=== PATIENT | male | born 1955 | race Caucasian/White ===

== ENCOUNTER 2022-04-04 04:36 | Inpatient (IN) | payer MEDICARE, OTHER, MEDICAID, SELFPAY ==
--- NOTE | 2022-04-04 04:38 | ECG_ITS ---
APPROVED REPORT Exam: Resting ECG HR:70 bpm ECG Measurements Heart Rate 70 AXES IL 199 P 62 QRSd 109 QRS 47 QT 400 T -42 QTc 421 Conclusion SINUS RHYTHM POSSIBLE INFERIOR MYOCARDIAL INFARCTION , OF INDETERMINATE AGE [30 ms Q WAVE IN II/aVF] ABNORMAL ECG UNCONFIRMED REPORT Electronically signed by : Octavio Arguello MD 04/05/2022 22:38:25
[2022-04-04 04:48] VITALS: BMI 29.0
[2022-04-04 04:55] VITALS: BMI 29.0
[2022-04-04 05:03] LABS: Basophils # 0.1 K/mm3 (0-0.2); Basophils % 0.4 % (0.1-2.0); Eosinophils # 0.1 K/mm3 (0.0-0.4); Eosinophils % 0.8 % (0.1-12.0); Hematocrit 51.4 % (42.0-52.0); Lymphocytes # 1.1 K/mm3 (0.7-4.5); Lymphocytes % 8.2 % (10-50); Mean Corpuscular HGB Conc 33.1 g/dL (31.8-35.4); Mean Corpuscular Hemoglobin 32.3 pg (27.0-31.2); Mean Corpuscular Volume 97.6 fl (80-94); Mean Platelet Volume 8.5 fl (7.4-10.4); Monocytes # 0.3 K/mm3 (0.1-1.0); Monocytes % 2.3 % (1.7-9.3); Neutrophils # 11.6 K/mm3 (1.8-7.8); Neutrophils % 88.3 % (37.0-80.0); Platelet Count 212 K/mm3 (142-424); Red Blood Count 5.26 M/mm3 (4.60-6.20); Red Cell Distribution Width 14.1 % (11.5-17.5); White Blood Count 13.1 K/mm3 (4.8-10.8)
[2022-04-04 05:04] LABS: Coronavirus 19, PCR Not Detected (NotDetected); Influenza A, PCR Not Detected (NotDetected); Influenza B, PCR Not Detected (NotDetected); MANUAL DIFFERENTIAL MANUAL DIFFERENTIAL (MANUAL DIFF)
[2022-04-04 05:12] LABS: Chloride 105 mmol/L (98-107); Sodium 140 mmol/L (136-145)
[2022-04-04 05:13] LABS: Potassium 3.9 mmoL/L (3.5-5.1)
[2022-04-04 05:14] LABS: Lymphocytes % 9 % (10-50); Monocytes % 1 % (2-9); Neutrophils % 87 % (42-76); Platelet Estimate Normal; RBC Morphology Normal; Total Cells Counted 100
[2022-04-04 05:16] LABS: Anion Gap 11.9 mEq/L (5-15); Blood Urea Nitrogen 9 mg/dl (9-20); Calcium 8.7 mg/dl (8.4-10.2); Carbon Dioxide 27 mmol/L (22.0-30.0); Creatinine Clearance Estimated 97 mL/min (50-200); Estimated Glomerular Filt Rate 96 ml/min (>60); GFR (African American) 116 ML/MIN (>60); Glucose 174 mg/dl (74-100)
--- NOTE | 2022-04-04 05:19 | PC.NURSE ---
Pt given small amount of water to drink per request. No other needs at this time. Call light within reach.
--- NOTE | 2022-04-04 05:21 | PC.NURSE ---
Dr. Starkey at assessing pt at this time.
[2022-04-04 05:24] VITALS: O2SAT 94
[2022-04-04 05:25] LABS: NT Pro Brain Natriuretic Pep. 1160 pg/mL (0-125)
[2022-04-04 05:38] LABS: Troponin I 1.66 ng/ml (0.00-0.034)
--- NOTE | 2022-04-04 05:38 | PC.NURSE ---
Ford from lab called critical troponin of 1.66, notified. No new orders.
--- NOTE | 2022-04-04 07:05 | EXP.HP ---
History of Present Illness *Admission Date: 04/04/22 *Reason for visit:: chest pain *History of present illness: this patient with new onset ofpressure like chest pain which started a few days ago and has been progressive since with rad to bilat upper ext - pt presented to [facility] and was noted to have abn ekg and elevated cardiac enz and transferred to [facility] for eval and treatment and card eval - [facility] records reviewed - [facility] Medical History (Updated 04/04/22 @ 20:36 by Brian Starkey MD) Bony spur CHF (congestive heart failure) COPD (chronic obstructive pulmonary disease) GERD (gastroesophageal reflux disease) Gout Hyperlipidemia Hypertension Nicotine dependence Surgical History (Updated 04/04/22 @ 05:20 by Daria Suarez, LAURENT) History of cholecystectomy Family History (Updated 04/04/22 @ 05:22 by Daria Suarez, LAURENT) Shelly Gehrig disease Father Family history of acute heart failure Mother Diabetes type 2, uncontrolled Mother Brother History of nephrectomy Brother Kidney failure Mother Kidney tumor Brother Family history of myocardial infarction Mother Hx of CABG Mother Lung disease Mother Stroke Mother Social History (Updated 04/04/22 @ 05:29 by Daria Suarez, LAURENT) Smoking Status: Current every day smoker tobacco type: cigarettes packs per day: 1 (1.5 packs per day) years smoked: 47 quit status: considering quitting second hand exposure: Yes Tobacco counseling given: provider counseling alcohol intake: never current occupational status: retired Travel in the last 8 weeks: None education level: high school service: No intermediate: No current occupational exposures/hazards: No pets and animals: Yes pets and animals: dog(s) leisure activities: fishing caffeine: Yes high-fat food intake: 3 or more times/day nela/gnosticism: Restoration special nela needs: No agree to transfusion: Yes Review of Systems Review of Systems Review of systems:: pertinent systems reviewed and negative unless documented below Constitutional Constitutional: Denies fever(s) and Denies headache(s) Eyes Eyes: Denies eye discharge ENT Ears, Nose, Mouth, and Throat: Denies headache(s) *Cardiovascular Cardiovascular: Reports as per HPI, Reports chest pain at rest, Reports dyspnea and Reports radiating jaw, neck or arm pain *Respiratory Respiratory: Reports as per HPI, Reports dyspnea and Denies hemoptysis *Gastrointestinal Gastrointestinal: Denies change in stool character *Genitourinary Genitourinary: Denies hematuria *Musculoskeletal Musculoskeletal: Reports arthralgias and Denies back pain Integumentary/Breasts Skin/Breast: Denies rash *Neurologic Neurologic: Denies confusion, Denies localized weakness and Denies headache(s) Psychiatric Psychiatric: Denies confusion Meds Home Medications and Allergies Home Medications Medication Instructions Recorded Confirmed Type albuterol sulfate 90 mcg/actuation 2 puff inhalation QIDP PRN 04/04/22 04/04/22 History aerosol inhaler (Ventolin HFA) Shortness Of Breath allopurinol 300 mg tablet 300 mg PO DAILY gout 04/04/22 04/04/22 History amlodipine 10 mg-benazepril 40 mg 1 cap PO DAILY Hypertension 04/04/22 04/04/22 History capsule atenolol 100 mg tablet 100 mg PO DAILY Hypertension 04/04/22 04/04/22 History furosemide 40 mg tablet (Lasix) 40 mg PO DAILY Edema 04/04/22 04/04/22 History omeprazole 20 mg capsule,delayed 20 mg PO DAILY GERD 04/04/22 04/04/22 History release sildenafil 100 mg tablet 100 mg PO NEEDED PRN Erectile 04/04/22 04/04/22 History Dysfunction simvastatin 20 mg tablet 20 mg PO HS Cholesterol 04/04/22 04/04/22 History New Prescriptions to Start Prescriptions: Allergies Allergy/AdvReac Type Severity Reaction Status Date / Time Naproxen Allergy Intermediate I-RASH Uncoded 07/12/17 14:45 Acetaminophen Allergy Unknown Uncoded 07/12/17 14:45 Oxycodone Allergy Unknown NA-NAUS
--- NOTE | 2022-04-04 07:54 | PC.NURSE ---
called dietary for a meal tray
--- NOTE | 2022-04-04 08:10 | PC.NURSE ---
pt eating breakfast
--- NOTE | 2022-04-04 08:26 | PC.NURSE ---
talked to Talha in pharmacy who is going to dose the heparin drip and bolus
[2022-04-04 08:39] LABS: Activated Partial Thrombo Time 30.6 seconds (22.8-30.6); INR 0.94 (0.9-1.1); Prothrombin Time 10.2 seconds (10.1-12.5)
--- NOTE | 2022-04-04 08:45 | HMH.PHAINT1 ---
Pharmacy Intervention Comments: MEDICATION RECONCILIATION COMPLETED ON PATIENT USING EXTERNAL FILL HISTORY FROM PHARMACY. -NENITA GUNN, NADEEMD
--- NOTE | 2022-04-04 10:51 | P.CONPHA_ITS ---
[facility] Pharmacy Heparin Dosing Demographic Data Admission date:: 04/04/22 Date: 04/04/22 Time: 10:51 Allergies Allergy/AdvReac Type Severity Reaction Status Date / Time naproxen Allergy Mild Rash Verified 04/05/22 14:34 oxycodone AdvReac Mild Nausea Verified 04/05/22 14:34 Height: 1.83 m Weight: 97 kg Indication Medication therapy:: Heparin Current Indications:: NSTEMI Current Active Problems (Updated 04/05/22 @ 10:14 by Preeti Aldridge APRN) Hypertension (Acute) Unstable angina (Acute) Non-STEMI (non-ST elevated myocardial infarction) (Acute) Overweight (BMI 25.0-29.9) (Acute) Non-STEMI (non-ST elevated myocardial infarction) (Acute) COPD (chronic obstructive pulmonary disease) (Acute) GERD (gastroesophageal reflux disease) (Acute) Hyperlipidemia (Acute) Nicotine dependence (Acute) CVA?: No Bleeding problem?: No Kidney disease?: No WV?: No Desired PTT range:: Other (50-75) Comments:: 50-75 Labs Anticoagulation Lab Results:: 04/04/22 04:55 Hgb 17.0 Hct 51.4 Plt Count 212 Monitoring Dose Monitor 1: Date: 04/04/22 Time: 08:30 PTT Result:: 30.6 Infusion Rate:: 1000 UNITS/HR PER EDUARDO Comment:: 5000 UNIT HEPARIN BOLUS PER EDUARDO. Dose Monitor 2: Date: 04/04/22 Time: 14:30 PTT Result:: 47.1 Infusion Rate:: RATE INCREASED TO 1,200 UNITS/HR Dose Monitor 3: Date: 04/04/22 Time: 21:00 PTT Result:: 41.8 Infusion Rate:: RATE INCREASED TO 1,400 UNITS/HR Dose Monitor 4: Date: 04/05/22 Time: 04:00 PTT Result:: 55.1 Infusion Rate:: 1,400 UNITS/HR Dose Monitor 5: Date: 04/05/22 Time: 10:00 PTT Result:: 56.2 Infusion Rate:: 1,400 UNITS/HR Comment:: STOPPED AFTER LEAVING HOSPITAL MEDICINE DIRECTOR Core Measures Is INR > or = 2 at discharge?: No Most Recent Labs:: Laboratory Results - last 24 hr 04/04/22 04:55: WBC 13.1 H, RBC 5.26, Hgb 17.0, Hct 51.4, MCV 97.6 H, MCH 32.3 H , MCHC 33.1, RDW 14.1, Plt Count 212, MPV 8.5, Neut % (Auto) 88.3 H, Lymph % (Auto) 8.2 L, Garland % (Auto) 2.3, Eos % (Auto) 0.8, Baso % (Auto) 0.4, Neut # (Auto) 11.6 H, Lymph # (Auto) 1.1, [place] # (Auto) 0.3, Eos # (Auto) 0.1, Baso # (Auto) 0.1, Total Counted 100, Neutrophils % (Manual) 87 H, Band Neutrophils % 3.0, Lymphocytes % (Manual) 9 L, Monocytes % (Manual) 1 L, Platelet Estimate Normal, RBC Morphology Normal 04/04/22 04:55: Sodium 140, Potassium 3.9, Chloride 105, Carbon Dioxide 27, Anion Gap 11.9, BUN 9, Creatinine 0.80, Estimated Creat Clear 97, Estimated GFR 96, Est GFR ( Amer) 116, Glucose 174 H, Calcium 8.7, Troponin I 1.66 H, NT-Pro-B Natriuret Pep 1160 H 04/04/22 04:55: SARS-CoV-2 (PCR) Not detected, Influenza A Untype (PCR) Not detected, Influenza Type B (PCR) Not detected 04/04/22 04:55: PT 10.2, INR 0.94, APTT 30.6 Were Heparin and Warfarin started on the same day?: No
--- NOTE | 2022-04-04 11:20 | PC.NURSE ---
called report to Shira MANCILLA
--- NOTE | 2022-04-04 11:39 | PC.NURSE ---
pt arrived to the floor at this time
[2022-04-04 11:47] VITALS: BP 139/79; PULSE 81; RESP 16; TEMP 36.4; O2SAT 99; BMI 27.9
--- NOTE | 2022-04-04 11:49 | PC.NURSE ---
pt had 1 unmeasured void
[2022-04-04 12:00] VITALS: PULSE 80
--- NOTE | 2022-04-04 13:57 | PC.NURSE ---
pt had 1 unmeasured void
[2022-04-04 14:48] LABS: PTT Heparin (inpatient only) 47.1 Seconds (23.6-34.0)
--- NOTE | 2022-04-04 15:49 | PC.NURSE ---
heparin rate changed to 24 per pharmacy. next draw is @2100
[2022-04-04 16:00] VITALS: BP 149/82; PULSE 79; PULSE 90; RESP 18; TEMP 36.7; O2SAT 96
[2022-04-04 20:00] VITALS: BP 130/74; PULSE 70; PULSE 95; RESP 18; TEMP 36.5; O2SAT 97
[2022-04-04 22:10] LABS: PTT Heparin (inpatient only) 41.8 Seconds (23.6-34.0)
--- NOTE | 2022-04-04 22:22 | HMH.PHAINT ---
dennis with nightwatch called with ptt results 41.8, note new orders to increase rate to 1400units/hr; 28ml/hr ; repeat ptt at 0400, repeated and verified.
[2022-04-04 23:58] VITALS: BP 144/81; PULSE 82; RESP 17; TEMP 36.6; O2SAT 99
[2022-04-05] VITALS (22 sets, daily range): BP systolic 129–165; BP diastolic 72–99; PULSE 60–88; RESP 16–20; TEMP 36.4–36.7; O2SAT 93–98; BMI 27.9
--- NOTE | 2022-04-05 | IR_ITS ---
APPROVED REPORT Patient Location: Inpatient PROCEDURES Left heart catheterization Left ventriculogram Selective coronary angiogram Drug-eluting stent deployment to the proximal mid dominant right coronary FFR to the LAD INDICATION Acute non-ST elevation myocardial infarction, Coronary artery disease, Angiographic ambiguous mid LAD disease Informed consent was obtained prior to the procedure. COMPLICATIONS NONE Estimated Blood Loss: LESS THAN 10 ML TECHNIQUE One percent lidocaine used to anesthetize the right anterior aspect of the wrist. The right radial artery was accessed via the Seldinger technique. A 6 Latvian sheath was placed in the right radial artery. 2.5 mg of verapamil, 800 mcg of nitroglycerin, 1mg Lidocaine and 5000 U Heparin were given through the arterial sheath. The papa catheter was also used to perform left heart catheterization, left ventriculogram and selective coronary angiogram. At the end the diagnostic angiogram therapeutic heparin was administered giving a therapeutic ACT and the guide catheter was placed in the right coronary followed by a Choice PT extra-support wire. A 4 mm x 38 mm resolute Harper stent was deployed at 14 hemanth reducing the critical stenosis to 0%. RAFAEL-3 flow was present before and after the procedure. At the end of the procedure the guide catheter was placed back in the left main artery with a wire placed down to the LAD. A nevus FFR catheter was then equalized in the left main artery and then advanced into the distal LAD. Adenosine was infused and the FFR index dropped to 0.81. Given this did not meet hemodynamic significance the apparatus was removed the sheath was removed good hemostasis was achieved using TR banding patient was transferred to the postop putting in stable condition ANGIOGRAPHIC RESULTS The left main artery Normal The left anterior descending artery Is proximally normal and then has multiple 50 and 60% mid vessel stenoses. The LAD is large in the mid segment approximately 3.5 mm in diameter. A large first diagonal artery has mild 10% luminal regularities The circumflex artery Is nondominant and has mild 10 to 20% mid vessel stenosis The right coronary artery There is a large dominant vessel and has proximal 30% and then 40% with mid vessel critical greater than 90% stenosis. Distally the vessel has a long 30% mostly eccentric stenosis The LEWIS ventriculogram reveals Preserved at 55% with mild inferior wall hypokinesis The left ventricular end-diastolic pressure 15 mmHg IMPRESSION Critical mid dominant right coronary disease as described above with successful stenting reducing the lesion to 0% with 1 drug-eluting stent Moderate to severe mid LAD disease as described above producing an FFR index of 0.81 which still warrants medical management Preserved ejection fraction with mild regional wall motion abnormality Borderline elevated LVEDP PLAN 1. Dual antiplatelet therapy 2. Risk factor modification 3. LDL less than 55 to be achieved with high intensity statin 4. Continue medical management for the mid LAD disease 5. Avoidance of tobacco products 6. Risk factor modification Electronically signed by : James Vyas MD 04/05/2022 15:27:26
[2022-04-05 04:06] LABS: Eosinophils # 0.2 K/mm3 (0.0-0.4); Hemoglobin 16.2 g/dL (14.1-18.0); Lymphocytes # 1.5 K/mm3 (0.7-4.5); Mean Corpuscular Hemoglobin 32.1 pg (27.0-31.2); Monocytes # 0.9 K/mm3 (0.1-1.0); Red Cell Distribution Width 14.2 % (11.5-17.5)
[2022-04-05 04:12] LABS: Basophils # 0.1 K/mm3 (0-0.2); Basophils % 0.4 % (0.1-2.0); Chloride 103 mmol/L (98-107); Eosinophils % 0.8 % (0.1-12.0); Hematocrit 49.2 % (42.0-52.0); Lymphocytes % 5.9 % (10-50); Mean Corpuscular HGB Conc 32.9 g/dL (31.8-35.4); Mean Corpuscular Volume 97.5 fl (80-94); Mean Platelet Volume 8.5 fl (7.4-10.4); Monocytes % 3.7 % (1.7-9.3); Neutrophils # 22.4 K/mm3 (1.8-7.8); Neutrophils % 89.2 % (37.0-80.0); Platelet Count 243 K/mm3 (142-424); Potassium 4.7 mmoL/L (3.5-5.1); Red Blood Count 5.05 M/mm3 (4.60-6.20); Sodium 137 mmol/L (136-145)
[2022-04-05 04:14] LABS: White Blood Count 25.2 K/mm3 (4.8-10.8)
[2022-04-05 04:15] LABS: Anion Gap 11.7 mEq/L (5-15); Blood Urea Nitrogen 15 mg/dl (9-20); Calcium 8.7 mg/dl (8.4-10.2); Carbon Dioxide 27 mmol/L (22.0-30.0); Creatinine Clearance Estimated 94 mL/min (50-200); Estimated Glomerular Filt Rate 96 ml/min (>60); GFR (African American) 116 ML/MIN (>60); Glucose 154 mg/dl (74-100); MANUAL DIFFERENTIAL MANUAL DIFFERENTIAL (MANUAL DIFF)
[2022-04-05 04:20] LABS: PTT Heparin (inpatient only) 55.1 Seconds (23.6-34.0)
[2022-04-05 04:25] LABS: Lymphocytes % 4 % (10-50); Monocytes % 3 % (2-9); Neutrophils % 84 % (42-76); Platelet Estimate Normal; RBC Morphology Normal; Total Cells Counted 100
--- NOTE | 2022-04-05 04:25 | HMH.PHAINT ---
PTT 55.1 called to kp with nightwatch, no rate change at this time and next PTT in 6 hours repeated and verified.
--- NOTE | 2022-04-05 05:43 | CA_ITS ---
APPROVED REPORT EXAM: Comprehensive 2D, Doppler, and color-flow Echocardiogram Energy Director: Socorro Soto CRT Ht: 6 ft 0 in Wt: 206lbs BSA: 2.16 BP: 104/78 mmHg Indications: post-covid 03/15 Abnormal ECG, Chest Pain, COPD, Non STEMI, Hypertension/HDD 2D Dimensions LVOT 2.14 cm (M/F) 1.5-2.5 LA Volume 40.80 mL LA Volume Index 18.90 mL/m2 (M/F) 16-34 M-Mode Dimensions RVDd 3.22 cm (0.9-2.6) LA Diam 3.94 cm (1.9-4.0) LVDd 6.03 cm (3.5-5.7) Ao Diam 4.08 cm (2.0-3.7) LVDs 3.94 cm (3.5-5.7) IVSd 1.09 cm (0.6-1.1) PWd 1.05 cm (0.6-1.1) EF (Teich) 62.90% FS 34.70% EDV (Teich) 182.10 mL TAPSE 2.18 (<1.7) ESV (Teich) 67.50 mL LV Diastology E Decel Time 237.00 (160-240 msec) E/A Ratio 0.76 MED E' 6.20 (< 7 cm/sec) MED A' 11.00 cm/s E'/MED E' Ratio 11.13 (>14) LAT E' 8.60 (<10 cm/sec) LAT A' 15.00 cm/s E/LAT E' Ratio 8.02 (>14) Aortic Valve AO Peak GR. 6.20 mmHg Mitral Valve MV A Velocity 91.00 (40-130 cm/s) E/A Ratio 0.76 MV Decel. Time 237.00 (160-240 ms) Pulmonary Valve PV Peak Velocity 110.00 (50-150 cm/s) Tricuspid Valve TR P. Velocity 164.00 cm/s RAP Estimate 10.00 mmHg RVSP 20.70 mmHg Left Ventricle Left atrium is mildly enlarged, left ventricle is normal size, mild concentric left ventricular hypertrophy, estimated ejection fraction 55% with no regional wall motion abnormality, endocardial surfaces are poorly visualized. Grade 1 diastolic dysfunction seen without tissue Doppler evidence of raise left atrial pressure. Right Ventricle Right atrium and right ventricle are mildly enlarged with normal contractility. Aortic Valve Valve is minimally thickened and calcified without aortic stenosis or aortic insufficiency. Mitral Valve Mitral valve grossly normal, there is trace mitral regurgitation. Tricuspid Valve Tricuspid valve grossly normal, there is trace tricuspid regurgitation, tricuspid regurgitation jet velocity is inadequate for calculation of the right ventricular systolic pressure. Pulmonic Valve Pulmonic valve is poorly visualized. Great Vessels Aortic root is normal size. Vena cava is poorly visualized. Pericardium No significant pericardial effusion noted. Conclusion 1. Biatrial enlargement, normal left ventricular size, mild concentric left ventricular hypertrophy, estimated ejection fraction 55% with no regional wall motion abnormality, grade 1 diastolic dysfunction seen without tissue Doppler evidence of raise left atrial pressure. 2. The right atrium and right ventricle are mildly enlarged with normal contractility. 3. The aortic valve is minimally thickened and fibrosed there is no aortic stenosis or aortic insufficiency. 4. Trace mitral and tricuspid regurgitation. 5. No significant pericardial effusion. 6. Inferior vena cava is poorly visualized. Electronically signed by : Haider See MD 04/05/2022 15:30:31
--- NOTE | 2022-04-05 05:46 | PC.NURSE ---
Addendum entered by Yenny Norwood RN 04/05/22 07:03: telemetry reveals NSR Original Note: pt rested well through the night, heparin gtt at 28mls/1400units/hr, last ptt 55.7, next ptt due at 10am, no complaints of chest pain through the night, VSS, WBC elevated with 4am lab draw 25.2, no acute distress noted this shift, no other issues noted at this time.
--- NOTE | 2022-04-05 10:02 | EXP.CARD.CON ---
History of Present Illness History of Present Illness Consult date: 04/05/22 Requesting physician: Brian Starkey Consult reason: chest pain Chief complaint: chest pain History of present illness: This is a 66-year-old white gentleman who presented to the emergency department at [facility] with complaints of chest pain. The patient states that his chest pain started on Tuesday evening after being started on dexamethasone and albuterol inhalers. The patient states that when he went to bed that night he had sudden onset of pain in the central aspect of his chest that he describes as a pressure sensation that radiated to bilateral arms and caused heaviness. The patient states that he attributed it to the new medications. He stopped taking the medications and he continued to have the chest pain until he presented to the emergency department over the weekend. The patient states that Tuesday night and Tuesday night the chest pain was the worst. He states that this was severe. It is associated with shortness of breath and diaphoresis. He states that it radiates to his bilateral arms and causes heaviness. The patient states that the pain is always the worst at night and does wake him up from his sleep. Nothing really helps to improve the pain but time. He states that this can last for several hours at a time. He reported not having any symptoms like this at all. The patient did report to [facility] emergency department over the weekend and was found to have an elevated troponin consistent with a non-STEMI. He also had an abnormal EKG. The patient was then transferred here to [facility] for further evaluation and treatment. He denies any fever, chills, nausea, vomiting, diarrhea, PND or orthopnea. [facility] Medical History (Updated 04/05/22 @ 10:14 by Preeti Aldridge APRN) Bony spur CHF (congestive heart failure) COPD (chronic obstructive pulmonary disease) GERD (gastroesophageal reflux disease) Gout Hyperlipidemia Hypertension Nicotine dependence Non-STEMI (non-ST elevated myocardial infarction) Unstable angina Surgical History (Updated 04/04/22 @ 05:20 by Daria Suarez RN) History of cholecystectomy Family History (Updated 04/04/22 @ 05:22 by Daria Suarez RN) Mother Family history of acute heart failure Diabetes type 2, uncontrolled Kidney failure Family history of myocardial infarction Hx of CABG Lung disease Stroke Brother Diabetes type 2, uncontrolled Kidney tumor History of nephrectomy Father Shelly Gehrig disease Social History (Updated 04/04/22 @ 05:29 by Daria Saurez RN) Smoking Status: Current every day smoker tobacco type: cigarettes packs per day: 1 (1.5 packs per day) years smoked: 47 quit status: considering quitting second hand exposure: Yes Tobacco counseling given: provider counseling alcohol intake: never current occupational status: retired Travel in the last 8 weeks: None education level: high school service: No shelter: No current occupational exposures/hazards: No pets and animals: Yes pets and animals: dog(s) leisure activities: fishing caffeine: Yes high-fat food intake: 3 or more times/day nela/latter day: Anabaptism special nela needs: No agree to transfusion: Yes Review of Systems Review of Systems Review of systems:: pertinent systems reviewed and negative unless documented below Constitutional Constitutional: Denies headache(s) Eyes Eyes: Reports system reviewed and no additional complaints, except as documented ENT Ears, Nose, Mouth, and Throat: Denies headache(s) *Cardiovascular Cardiovascular: Reports system reviewed and no additional complaints, except as documented, Reports chest pain, Reports chest pain at rest, Reports chest pain with activity, Reports diaphoresis, Reports dyspnea and Reports dyspnea on exertion *Respiratory Respiratory: Reports system reviewed and no additional compla
--- NOTE | 2022-04-05 10:25 | P.CONPHA_ITS ---
[facility] Pharmacy VTE Monitoring Patient Demographics Admission date: 04/04/22 Report Date: 04/05/22 Time: 10:25 Patient Allergies Naproxen Allergy (Intermediate, Uncoded 07/12/17 14:45) I-RASH Acetaminophen Allergy (Unknown, Uncoded 07/12/17 14:45) Oxycodone Allergy (Unknown, Uncoded 07/12/17 14:45) NA-NAUSEA/VOMITING Height: 1.83 m Weight: 93.5 kg Current Active Problems (Updated 04/05/22 @ 10:14 by Preeti Aldridge APRN) Hypertension (Acute) Unstable angina (Acute) Non-STEMI (non-ST elevated myocardial infarction) (Acute) Overweight (BMI 25.0-29.9) (Acute) Non-STEMI (non-ST elevated myocardial infarction) (Acute) COPD (chronic obstructive pulmonary disease) (Acute) GERD (gastroesophageal reflux disease) (Acute) Hyperlipidemia (Acute) Nicotine dependence (Acute) VTE Risk Labs: VTE Related Lab Results Hgb 16.2 g/dL (14.1-18.0) 04/05/22 04:00 Hct 49.2 % (42.0-52.0) 04/05/22 04:00 Plt Count 243 K/mm3 (142-424) 04/05/22 04:00 PT 10.2 seconds (10.1-12.5) 04/04/22 04:55 INR 0.94 (0.9-1.1) 04/04/22 04:55 APTT 55.1 Seconds (23.6-34.0) H* 04/05/22 04:00 BUN 15 mg/dl (9-20) D 04/05/22 04:00 Creatinine 0.80 mg/dl (0.66-1.25) 04/05/22 04:00 Estimated Creat Clear 94 mL/min (50-200) 04/05/22 04:00 Prophylaxis VTE Prophylaxis Ordered?: Yes Types of VTE Prophylaxis: Pharmacological Location of Applied Device: Not Applicable Pharmacologic Type: Heparin
[2022-04-05 10:26] LABS: PTT Heparin (inpatient only) 56.2 Seconds (23.6-34.0)
[2022-04-05 14:14] LABS: CATHL Activated Clotting Time 371 SEC (74-125)
--- NOTE | 2022-04-05 16:16 | P.PN_ITS ---
Subjective *Date: 05/06/22 *Time: 00:04 Interval history: doing ok awaiting card eval Medical Exam Vital signs and Labs for Last 24 Hours: Temp Pulse Resp BP Pulse Ox 97.6 F 76 18 151/74 H 96 04/05/22 08:00 04/05/22 15:55 04/05/22 15:55 04/05/22 15:55 04/05/22 15:55 Laboratory Results - last 24 hr 04/04/22 21:00: APTT 41.8 H 04/05/22 04:00: WBC 25.2 H* D, RBC 5.05, Hgb 16.2, Hct 49.2, MCV 97.5 H, MCH 32.1 H, MCHC 32.9, RDW 14.2, Plt Count 243, MPV 8.5, Neut % (Auto) 89.2 H, Lymph % (Auto) 5.9 L, [place] % (Auto) 3.7, Eos % (Auto) 0.8, Baso % (Auto) 0.4, Neut # (Auto) 22.4 H, Lymph # (Auto) 1.5, [place] # (Auto) 0.9, Eos # (Auto) 0.2, Baso # (Auto) 0.1, Total Counted 100, Neutrophils % (Manual) 84 H, Band Neutrophils % 9.0 H, Lymphocytes % (Manual) 4 L, Monocytes % (Manual) 3, Platelet Estimate Normal, RBC Morphology Normal 04/05/22 04:00: Sodium 137, Potassium 4.7 D, Chloride 103, Carbon Dioxide 27, Anion Gap 11.7, BUN 15 D, Creatinine 0.80, Estimated Creat Clear 94, Estimated GFR 96, Est GFR ( Amer) 116, Glucose 154 H, Calcium 8.7 04/05/22 04:00: APTT 55.1 H* 04/05/22 10:09: APTT 56.2 H* 04/05/22 13:22: Activated Clotting Time 371 H* I & O for Labs for Last 24 Hours: Intake & Output 04/03/22 04/04/22 04/05/22 04/06/22 11:59 11:59 11:59 11:59 Intake Total 2049 Output Total 0 / 0 0 / 0 200 / 200 Balance 0 / 0 2049 -200 / -200 Weight 206 lb 5 oz 206 lb 2.115 oz Head: Present atraumatic ENT: Present mucous membranes moist Neck: Present trachea midline Respiratory: Present CTA bilaterally Cardiac: Present Reg Rate and Rhythm and Systolic Murmur GI: Present soft Extremities: Absent calf tenderness Skin: Absent erythema Neuro: Present Cranial Nerve 2-12 Intact
--- NOTE | 2022-04-05 17:44 | PC.NURSE ---
PT IS SITTING UP ON THE SOB EATING DINNER AT THIS TIME. FAMILY AT BEDSIDE. ALERT AND ORIENTED X4. NO COMPLAINTS OF CP OR SOA. EATING AND DRINKING WELL. LUNG SOUNDS DIMINISHED. ABDOMEN SOFT/NON TENDER WITH ACTIVE BOWEL SOUNDS. NO SWELLING NOTED BLE. AMBULATES TO THE BATHROOM. WILL CONTINUE TO MONITOR.
--- NOTE | 2022-04-05 21:23 | PC.NURSE ---
pt requested breathing treatment. states he uses them at home and would like one now. paged and spoke with dr. ryder. new orders received. paged respiratory for yanni finney @[phone]
[2022-04-06] VITALS: PULSE 70
[2022-04-06 04:00] VITALS: BP 131/82; PULSE 69; PULSE 70; RESP 16; TEMP 36.6; O2SAT 97
--- NOTE | 2022-04-06 04:12 | PC.NURSE ---
pt has had no c/o CP or SOA this shift. right radial cath site dressing c/d/i. he has been NSR on tele with HR 70-88. he remains on RA and has tolerated well. lung sounds diminished. non-productive cough present. tolerates cardiac diet. a&oX4. ambulated independently to bathroom. 1/2 NS infusing at 50 ml/hr. call light within reach, no needs at this time.
[2022-04-06 05:00] VITALS: BMI 28.0
[2022-04-06 06:44] LABS: Basophils # 0.1 K/mm3 (0-0.2); Basophils % 0.8 % (0.1-2.0); Eosinophils # 0.1 K/mm3 (0.0-0.4); Eosinophils % 0.7 % (0.1-12.0); Hematocrit 49.9 % (42.0-52.0); Lymphocytes # 3.6 K/mm3 (0.7-4.5); Lymphocytes % 21.5 % (10-50); Mean Corpuscular HGB Conc 32.1 g/dL (31.8-35.4); Mean Corpuscular Hemoglobin 31.9 pg (27.0-31.2); Mean Corpuscular Volume 99.4 fl (80-94); Mean Platelet Volume 8.9 fl (7.4-10.4); Neutrophils # 11.8 K/mm3 (1.8-7.8); Platelet Count 236 K/mm3 (142-424); Red Blood Count 5.02 M/mm3 (4.60-6.20); Red Cell Distribution Width 14.3 % (11.5-17.5); White Blood Count 16.7 K/mm3 (4.8-10.8)
[2022-04-06 06:51] LABS: Alanine Aminotransferase 30 U/L (12-78); Albumin Level 3.9 g/dl (3.5-5.0); Alkaline Phosphatase 89 U/L (38-126); Anion Gap 13.1 mEq/L (5-15); Aspartate Amino Transferase 40 U/L (17-59); Bilirubin,Direct 0.2 mg/dl (0.0-0.4); Bilirubin,Total 0.2 mg/dl (0.2-1.3); Bilirubin,Unconjugated 0.1 mg/dL (0.0-1.1); Blood Urea Nitrogen 18 mg/dl (9-20); Calcium 8.7 mg/dl (8.4-10.2); Carbon Dioxide 27 mmol/L (22.0-30.0); Chloride 101 mmol/L (98-107); Chol/HDL Ratio 4.1 (1-3.5); Cholesterol 153 mg/dl (140-200); Creatinine Clearance Estimated 94 mL/min (50-200); Estimated Glomerular Filt Rate 84 ml/min (>60); GFR (African American) 102 ML/MIN (>60); Glucose 103 mg/dl (74-100); HDL Cholesterol 37 mg/dl (40-60); Potassium 4.1 mmoL/L (3.5-5.1); Sodium 137 mmol/L (136-145); Total Protein,Serum 6.5 g/dl (6.3-8.2); Triglycerides 200 mg/dl (30-150); VLDL Cholesterol 40 mg/dL (0-40)
[2022-04-06 07:01] LABS: Direct LDL Cholesterol 81.37 mg/dL (100-129)
[2022-04-06 07:03] LABS: MANUAL DIFFERENTIAL MANUAL DIFFERENTIAL (MANUAL DIFF)
[2022-04-06 07:42] LABS: Lymphocytes % 21 % (10-50); Monocytes % 3 % (2-9); Neutrophils % 76 % (42-76); Platelet Estimate Normal; RBC Morphology Normal; Total Cells Counted 100
[2022-04-06 07:58] VITALS: BP 134/82; PULSE 77; RESP 16; TEMP 36.6; O2SAT 97
[2022-04-06 08:00] VITALS: PULSE 70
--- NOTE | 2022-04-06 09:20 | EXP.CARD.PN ---
Subjective Subjective Date: 04/06/22 Time: 08:30 Principal diagnosis: Non-stemi, CAD, coronary stenting Interval history: This is a 66-year-old white gentleman who presented to the emergency department initially at [facility] with chest pain. He was found to have a non-STEMI and an abnormal EKG. The patient was transferred here to [facility]. The patient underwent left cardiac catheterization and had stenting to the right coronary artery yesterday. The patient will remain on Plavix and aspirin for dual antiplatelet therapy. This morning he denies any chest pain or pressure. He denies any shortness of breath or edema. He denies any fever, chills, nausea, vomiting, diarrhea, PND or orthopnea. He denies any right radial pain. The patient does report that through the night he had a little bit of coughing and wheezing, he was given a DuoNeb treatment and his symptoms resolved. He has had no issues since that time. He reports that he is feeling much better and is ready to be discharged home. [facility] shows: The left main artery Normal The left anterior descending artery Is proximally normal and then has multiple 50 and 60% mid vessel stenoses.? The LAD is large in the mid segment approximately 3.5 mm in diameter.? A large first diagonal artery has mild 10% luminal regularities The circumflex artery Is nondominant and has mild 10 to 20% mid vessel stenosis The right coronary artery There is a large dominant vessel and has proximal 30% and then 40% with mid vessel critical greater than 90% stenosis.? Distally the vessel has a long 30% mostly eccentric stenosis The LEWIS ventriculogram reveals Preserved at 55% with mild inferior wall hypokinesis The left ventricular end-diastolic pressure 15 mmHg IMPRESSION Critical mid dominant right coronary disease as described above with successful stenting reducing the lesion to 0% with 1 drug-eluting stent Moderate to severe mid LAD disease as described above producing an FFR index of 0.81 which still warrants medical management Preserved ejection fraction with mild regional wall motion abnormality Borderline elevated LVEDP PLAN 1. Dual antiplatelet therapy 2. Risk factor modification 3. LDL less than 55 to be achieved with high intensity statin 4. Continue medical management for the mid LAD disease 5. Avoidance of tobacco products 6. Risk factor modification Exam Data for Last 24 hours Vital signs and Labs for Last 24 Hours: Temp Pulse Resp BP Pulse Ox 97.8 F 77 16 134/82 97 04/06/22 07:58 04/06/22 07:58 04/06/22 07:58 04/06/22 07:58 04/06/22 07:58 Laboratory Results - last 24 hr 04/05/22 10:09: APTT 56.2 H* 04/05/22 13:22: Activated Clotting Time 371 H* 04/06/22 06:33: WBC 16.7 H D, RBC 5.02, Hgb 16.0, Hct 49.9, MCV 99.4 H, MCH 31.9 H, MCHC 32.1, RDW 14.3, Plt Count 236, MPV 8.9, Neut % (Auto) 71.0, Lymph % (Auto) 21.5, Bent % (Auto) 6.0, Eos % (Auto) 0.7, Baso % (Auto) 0.8, Neut # (Auto) 11.8 H, Lymph # (Auto) 3.6, Bent # (Auto) 1.0, Eos # (Auto) 0.1, Baso # (Auto) 0.1, Total Counted 100, Neutrophils % (Manual) 76, Lymphocytes % (Manual) 21, Monocytes % (Manual) 3, Platelet Estimate Normal, RBC Morphology Normal 04/06/22 06:33: Sodium 137, Potassium 4.1, Chloride 101, Carbon Dioxide 27, Anion Gap 13.1, BUN 18, Creatinine 0.90, Estimated Creat Clear 94, Estimated GFR 84, Est GFR ( Amer) 102, Glucose 103 H, Calcium 8.7, Total Bilirubin 0.2, Direct Bilirubin 0.2, Conjugated Bilirubin 0.0, Indirect Bilirubin 0.0, Unconjugated Bilirubin 0.1, AST 40, ALT 30, Alkaline Phosphatase 89, Total Protein 6.5, Albumin 3.9, Triglycerides 200 H, Cholesterol 153, LDL Cholesterol Direct 81.37 L, VLDL Cholesterol 40, HDL Cholesterol 37 L, Cholesterol/HDL Ratio 4.1 H I & O for Last 24 hours: Intake & Output 04/03/22 04/04/22 04/05/22 04/06/22 23:59 23:59 23:59 23:59 Intake Total 1560 / 1560 1090 / 1090 287 / 287 Output Total 0 / 0 200 / 200 0 / 0 Balance 1560 / 1560 89
--- NOTE | 2022-04-06 10:22 | EXP.DC.SUM ---
General Admission date:: 04/04/22 Discharge date: 04/06/22 HPI HPI HPI: this patient with new onset ofpressure like chest pain which started a few days ago and has been progressive since with rad to bilat upper ext - pt presented to [facility] and was noted to have abn ekg and elevated cardiac enz and transferred to [facility] for eval and treatment and card eval - [facility] records reviewed - Hospital Course Hospital Course Hospital Course: 66 YOM presented to the [facility] emergency department with reports of chest pain.? He was found to have a non-STEMI and an abnormal EKG.? He was then transferred to [facility] and underwent a left cardiac catheterization and had stenting to the right coronary artery.? [facility] shows: The left main artery Normal The left anterior descending artery Is proximally normal and then has multiple 50 and 60% mid vessel stenoses.? The LAD is large in the mid segment approximately 3.5 mm in diameter.? A large first diagonal artery has mild 10% luminal regularities The circumflex artery Is nondominant and has mild 10 to 20% mid vessel stenosis The right coronary artery There is a large dominant vessel and has proximal 30% and then 40% with mid vessel critical greater than 90% stenosis.? Distally the vessel has a long 30% mostly eccentric stenosis The LEWIS ventriculogram reveals Preserved at 55% with mild inferior wall hypokinesis The left ventricular end-diastolic pressure 15 mmHg IMPRESSION Critical mid dominant right coronary disease as described above with successful stenting reducing the lesion to 0% with 1 drug-eluting stent Moderate to severe mid LAD disease as described above producing an FFR index of 0.81 which still warrants medical management Preserved ejection fraction with mild regional wall motion abnormality Borderline elevated LVEDP PLAN 1. Dual antiplatelet therapy 2. Risk factor modification 3. LDL less than 55 to be achieved with high intensity statin 4. Continue medical management for the mid LAD disease 5. Avoidance of tobacco products 6. Risk factor modification Assessment and Plan Assessment and Plan for All Diagnoses:: Plan: 1.? This is a 66-year-old gentleman who presented to the emergency department at [facility] initially was found to have a non-ST elevation myocardial infarction with an abnormal EKG.? The patient was transferred here to [place] and underwent left cardiac catheterization secondary to the non-STEMI yesterday.? He had stenting to his right coronary artery for critical disease.? He also has persistent disease to his LAD which had an FFR of 0.81 so no percutaneous intervention was indicated.? The patient will remain on Plavix and aspirin for dual antiplatelet therapy secondary to recent coronary stenting. 2.? This morning the patient denies any chest pain or pressure.? Coronary artery disease is likely stable. 3.? His blood pressure is well controlled. 4.? His LDL goal is less than 55.? His LDL is currently 81.? We will stop simvastatin and put him on Lipitor 40 mg p.o. nightly. 5.? His echocardiogram shows a normal ejection fraction. 6.? Tobacco cessation is highly advised and counseled. 7.? No further recommendations at this time from a cardiac standpoint.? The patient is stable for discharge home today from a cardiac standpoint.? The patient will need to follow-up in cardiology clinic in 1 week on an outpatient basis.? The patient will need to be discharged on the following cardiac medications: Aspirin 81 mg daily, Plavix 75 mg daily, Lipitor 40 mg p.o. nightly, atenolol 100 mg daily, amlodipine/benazepril 10/40 mg 1 capsule daily. He will be discharged home today with follow-up appointments scheduled with PCP Pamela Jean and [facility] cardiology Exam Data for Last 24 hours Vital signs and Labs for Last 24 Hours: Temp Pulse Resp BP Pulse Ox 97.8 F 70 16 134/82 97 04/06/22 07:58 04/06/22 08:00
--- NOTE | 2022-04-06 11:36 | P.CONPHA_ITS ---
PHA Household Appliances Salesperson Discharge Med Books Salesperson: Shayan Darden Jimmie has received discharge medication counseling on the following medications: ASPIRIN, PLAVIX, ATORVASTATIN, BENZAPRIL+AMLODIPINE, ATENOLOL were discussed with and patient
--- NOTE | 2022-04-07 13:37 | CARE MANAGER ---
Left message for post-discharge phone interview.
== END 2022-04-06 11:25 | disposition home or self-care (01) | DRG 247 ==
PROVIDERS: Internal Medicine; Nurse Practitioner Family; Admitting Provider Emergency Medicine; PCP Nurse Practitioner Family; Visit Provider Emergency Medicine
PROC: 027034Z Dilation of Coronary Artery, One Artery with Drug-eluting Intraluminal Device, Percutaneous Approach (ICD-10-PCS; principal; 2022-04-05 12:30)
DX: I21.4 Non-ST elevation (NSTEMI) myocardial infarction (principal); F17.210 Nicotine dependence, cigarettes, uncomplicated; I25.110 Atherosclerotic heart disease of native coronary artery with unstable angina pectoris; J44.9 Chronic obstructive pulmonary disease, unspecified; I25.10 Atherosclerotic heart disease of native coronary artery without angina pectoris; Z71.6 Tobacco abuse counseling; M10.9 Gout, unspecified; I11.0 Hypertensive heart disease with heart failure; I50.9 Heart failure, unspecified; E78.5 Hyperlipidemia, unspecified
CPT/HCPCS: 36415; 80048; 80061; 80076; 83880; 84484; 85007; 85025; 85347; 85610; 85730; 92928; 93005; 93306; 93458; 93571; 94640; 99152; 99153; C1725; C1769; C1876; C9600; C9803; J0153; J1644; Q9967; U0003; U0005

== ENCOUNTER → 2022-04-14 10:38 | Outpatient (CLI) | payer MEDICARE, MEDICAID, OTHER, SELFPAY ==
[2022-04-14 12:49] LABS: Hematocrit 48.9 % (42.0-52.0); Hemoglobin 15.9 g/dL (14.1-18.0)
[2022-04-14 14:06] LABS: Blood Urea Nitrogen 10 mg/dl (9-20); Estimated Glomerular Filt Rate 74 ml/min (>60); GFR (African American) 90 ML/MIN (>60)
== END ==
PROVIDERS: PCP Nurse Practitioner Family; Visit Provider Emergency Medicine
DX: I20.0 Unstable angina (principal)
CPT/HCPCS: 36415; 82565; 84520; 85014; 85018

== ENCOUNTER 2022-04-20 09:37 | Outpatient (RCR) | payer MEDICARE, OTHER, MEDICAID, SELFPAY | END 2022-07-01 10:30 | disposition home or self-care (01) | LOC: PT 09:37 | PROVIDERS: Visit Provider Internal Medicine | DX: I25.10 Atherosclerotic heart disease of native coronary artery without angina pectoris (principal); Z95.5 Presence of coronary angioplasty implant and graft | CPT/HCPCS: 93798 ==

== ENCOUNTER → 2023-03-23 06:44 | Outpatient (CLI) | payer MEDICARE, OTHER, MEDICAID, SELFPAY ==
--- NOTE | 2023-03-23 06:51 | NM_ITS ---
APPROVED REPORT Exam: Nuclear Stress Test Indication: soa..fatigue Patient Location: Outpatient Stress Tech: Lazara Garcia [place] Tech:NACHO Murguia RT(R)(N) Ht: 6 ft 0 in Wt: 241 lbs HR: 61 bpm BP: 142/80 mmHg BSA: 2.31 m2 Rhythm: NSR TID: 1.07 History: soa..fatigue Procedure: Patient received 0.4 mg of intravenous Lexiscan, resting heart rate 61 bpm, resting blood pressure 142/80 mmHg, with Lexiscan maximum heart rate achieved was 72 bpm which is 85 % of the maximum predicted heart rate and blood pressure was 151/83 mmHg. With Lexiscan, patient denied any complaint of chest pain. Cardiac Stress and Resting SPECT Images: Cardiac Stress and Resting SPECT images were obtained using technetium 99m Myoview 32.9 mCi stress and 10.98 mCi at rest. Raw images demonstrate significant radiotracer GI uptake in close proximity to the inferior LV wall. This may affect the diagnostic interpretation of the study findings. Resting and stress imaging in supine position demonstrate a small-sized, moderate, fixed perfusion defect in the basal inferior LV wall. This is no longer visualize with prone stress imaging. Findings are suggestive of artifact. Gated imaging demonstrates normal global and regional LV systolic function. LVEF is calculated at 57%. Conclusion: Raw images demonstrate significant radiotracer GI uptake in close proximity to the inferior LV wall. This may affect the diagnostic interpretation of the study findings. Resting and stress imaging in supine position demonstrate a small-sized, moderate, fixed perfusion defect in the basal inferior LV wall. This is no longer visualize with prone stress imaging. Findings are suggestive of artifact. Gated imaging demonstrates normal global and regional LV systolic function. LVEF is calculated at 57%. Electronically signed by : Dhara Vidales, 03/28/2023 16:46:16
--- NOTE | 2023-03-23 08:45 | CA_ITS ---
APPROVED REPORT Exam: Pharmacologic Technologist: Lazara Dominique, Ht: 6 ft 0 in Wt: 241 lbs BSA: 2.31 m2 HR: 61 bpm BP: 142/80 mmHg Rhythm: NSR Medical History Medications: Aspirin,,,,, Atenolol,,,,, Allopurinol,,,,, Pantoprazole,,,,, Atorvastatin,,,,, Lasix,,,,, Albuterol,,,,, CloPIdogrel,,,,, Amlodipine-Benazepril,,,,, SyMBICcort,,,,, Seldenafil,,,,, Stress Test Details Test: LEXISCAN Reason for pharmacologic stress test: physical limitation. HR Resting HR: 61 bpm Max Heart Rate (APMHR): 151 bpm Max HR Achieved: 72 bpm Target HR (85% APMHR): 128 bpm % of APMHR: 48 Recovery HR: 67 bpm BP Resting BP: 142.0/80.0 mmHg Max BP: 151.0/83.0 mmHg Recovery BP: 147.0/82.0 mmHg ECG Resting ECG: NSR, 1st degree AVB, cannot R/O old inferior IA Stress ECG: No significant ST change Arrhythmia: Occasional PVCs Clinical Exercise duration: 04:01 min Highest Stage Achieved: Exercise capacity: 1.0 METs Stress ECG Conclusion Symptoms: mild SOA, head discomfort. No CP. Arrhythmias/Ectopy: Occasional PVCs ST-T Changes: No significant ST changes Conclusion: Unremarkable Lexiscan stress test. Myoview images reported separately. Test Summary REST . . . . . . . Resting REST 04:45 . . 61 . 142/ 80 . . Stage 1 01:00 . . 67 . . . . Stage 2 01:00 . . 67 . 143/ 76 . . Stage 3 01:00 . . 67 . 139/ 74 . . Stage 4 01:00 . . 68 . 142/ 78 . . Stage 4 01:01 . . 68 . 142/ 78 . Stop exercise at 04:01 RECOVERY 01:00 . . 70 . . . . RECOVERY 02:00 . . 66 . 151/ 83 . . RECOVERY 03:00 . . 67 . 147/ 82 . . RECOVERY 03:33 . . 69 . 147/ 82 . . Electronically signed by : Dhara Vidales, 03/28/2023 16:41:58
== END ==
PROVIDERS: PCP Nurse Practitioner Family; Visit Provider Nurse Practitioner Family
DX: E78.5 Hyperlipidemia, unspecified (principal); I10 Essential (primary) hypertension; I21.4 Non-ST elevation (NSTEMI) myocardial infarction; I25.10 Atherosclerotic heart disease of native coronary artery without angina pectoris; J44.9 Chronic obstructive pulmonary disease, unspecified; K21.9 Gastro-esophageal reflux disease without esophagitis; R06.00 Dyspnea, unspecified; Z95.5 Presence of coronary angioplasty implant and graft
CPT/HCPCS: 78452; 93017; A9502; J2785

== ENCOUNTER → 2023-04-07 09:43 | Outpatient (CLI) | payer MEDICARE, OTHER, MEDICAID, SELFPAY ==
--- NOTE | 2023-04-07 09:46 | CA_ITS ---
APPROVED REPORT EXAM: Comprehensive 2D, Doppler, and color-flow Echocardiogram Crime Data Specialist: Kenya Waller RVT Ht: 6 ft 0 in Wt: 241lbs BSA: 2.31 BP: 134/62 mmHg Indications: DYSPENA,CAD,CHF,COPD,HTN,HLD 2D Dimensions LVOT 2.23 cm (M/F) 1.5-2.5 LA Volume 55.70 mL LA Volume Index 24.11 mL/m2 (M/F) 16-34 M-Mode Dimensions RVDd 3.27 cm (0.9-2.6) LA Diam 4.75 cm (1.9-4.0) LVDd 5.46 cm (3.5-5.7) Ao Diam 3.59 cm (2.0-3.7) LVDs 3.93 cm (3.5-5.7) IVSd 1.00 cm (0.6-1.1) PWd 0.65 cm (0.6-1.1) EF (Teich) 53.70% FS 28.00% EDV (Teich) 145.00 mL TAPSE 2.73 (<1.7) ESV (Teich) 67.10 mL LV Diastology E Decel Time 200.00 (160-240 msec) E/A Ratio 0.6 MED E' 5.20 (< 7 cm/sec) E'/MED E' Ratio 10.96 (>14) LAT E' 5.30 (<10 cm/sec) E/LAT E' Ratio 10.75 (>14) Aortic Valve AO Peak GR. 5.90 mmHg Mitral Valve MV E Max Tor. 57.00 (40-130 cm/s) MV A Velocity 95.00 (40-130 cm/s) E/A Ratio 0.60 MV Decel. Time 200.00 (160-240 ms) MV PHT 59.00 ms Pulmonary Valve PV Peak Velocity 96.00 (50-150 cm/s) Left Ventricle The left ventricle is normal size. The left ventricular systolic function is normal. The left ventricular ejection fraction is within the normal range. There is increased LV wall thickness. There is normal LV segmental wall motion. The left ventricular diastolic function is normal. LVEF is 55%. Right Ventricle The right ventricle is mildly dilated. The right ventricular systolic function is normal. Atria The left atrium size is normal. The right atrium size is normal. There is no Doppler evidence of interatrial shunt. Aortic Valve The aortic valve is mildly thickened. There is no aortic valvular stenosis. No aortic regurgitation is present. Mitral Valve The mitral valve is normal in structure. No evidence of mitral valve stenosis. Trace mitral regurgitation. Tricuspid Valve The tricuspid valve is thin and pliable. Trace tricuspid regurgitation. There is insufficient TR jet to estimate RVSP. Pulmonic Valve The pulmonary valve is normal in structure. Trace pulmonic regurgitation. Great Vessels The aortic root is normal in size. The ascending aorta is normal in size. IVC is normal in size and collapses >50% with inspiration. Pericardium Trivial, anterior pericardial effusion. Other Information Study Quality: Fair Conclusion Normal biventricular systolic function. Mild RV dilation. No significant valvular stenosis or regurgitation. Electronically signed by : Dhara Vidales, 04/11/2023 17:10:46
== END ==
PROVIDERS: PCP Nurse Practitioner Family; Visit Provider Nurse Practitioner Family
DX: E78.5 Hyperlipidemia, unspecified (principal); I10 Essential (primary) hypertension; I21.4 Non-ST elevation (NSTEMI) myocardial infarction; I25.10 Atherosclerotic heart disease of native coronary artery without angina pectoris; J44.9 Chronic obstructive pulmonary disease, unspecified; K21.9 Gastro-esophageal reflux disease without esophagitis; R06.00 Dyspnea, unspecified; Z95.5 Presence of coronary angioplasty implant and graft
CPT/HCPCS: 93306

== ENCOUNTER 2023-06-26 20:35 | Emergency (ER) | payer MEDICARE, OTHER, MEDICAID, SELFPAY ==
[2023-06-26 20:36] VITALS: BP 156/88; PULSE 85; RESP 18; TEMP 36.7; O2SAT 93; BMI 32.9
--- NOTE | 2023-06-26 20:54 | PC.NURSE ---
Pt states dizziness started last evening after pt took a nebulizer treatment and then took a Viagra.
--- NOTE | 2023-06-26 21:31 | CT_ITS ---
PROCEDURE INFORMATION: Exam: CTA Head With Contrast, Arteriography Exam date and time: 06/26/2023 9:51 PM Age: 67 years old Clinical indication: Vertigo; Additional info: Vertigo; Ataxia TECHNIQUE: Imaging protocol: Computed tomographic angiography of the head with contrast. Exam focused on the arteries. 3D rendering (Not supervised by radiologist): MIP and/or 3D reconstructed images were created by the technologist. Radiation optimization: All CT scans at this facility use at least one of these dose optimization techniques: automated exposure control; mA and/or kV adjustment per patient size (includes targeted exams where dose is matched to clinical indication); or iterative reconstruction. Contrast material: ISOVUE; Contrast volume: 100 ml; Contrast route: INTRAVENOUS (IV); REPORTING DATA: Count of CT and Cardiac NM exams in prior 12 months: This patient has received 0 known CTs and 0 known cardiac nuclear medicine studies in the 12 months prior to the current study. COMPARISON: CT HEAD/BRAIN WO CON 06/26/2023 9:48 PM FINDINGS: ANTERIOR CIRCULATION: Right internal carotid artery: Intracranial segment is patent with no significant stenosis. No aneurysm. Right middle cerebral artery: No occlusion or significant stenosis. No aneurysm. Right anterior cerebral artery: No occlusion or significant stenosis. No aneurysm. Left internal carotid artery: Intracranial segment is patent with no significant stenosis. No aneurysm. Left middle cerebral artery: No occlusion or significant stenosis. No aneurysm. Left anterior cerebral artery: No occlusion or significant stenosis. No aneurysm. POSTERIOR CIRCULATION: Right vertebral artery: No occlusion or significant stenosis. No aneurysm. Left vertebral artery: No occlusion or significant stenosis. No aneurysm. Basilar artery: No occlusion or significant stenosis. No aneurysm. Right posterior cerebral artery: No occlusion or significant stenosis. No aneurysm. Left posterior cerebral artery: No occlusion or significant stenosis. No aneurysm. Brain: No definite mass, mass effect, or midline shift. Cerebral ventricles: No ventriculomegaly. Bones/joints: Unremarkable. No acute fracture. Soft tissues: Unremarkable. IMPRESSION: No large vessel stenosis or occlusion.
--- NOTE | 2023-06-26 21:31 | CT_ITS ---
PROCEDURE INFORMATION: Exam: CTA Neck With Contrast Exam date and time: 06/26/2023 9:51 PM Age: 67 years old Clinical indication: Vertigo; Additional info: Vertigo; Ataxia TECHNIQUE: Imaging protocol: Computed tomographic angiography of the neck with contrast. Exam focused on the cervical segments of the vasculature. 3D rendering (Not supervised by radiologist): MIP and/or 3D reconstructed images were created by the technologist. Radiation optimization: All CT scans at this facility use at least one of these dose optimization techniques: automated exposure control; mA and/or kV adjustment per patient size (includes targeted exams where dose is matched to clinical indication); or iterative reconstruction. Contrast material: ISOVUE; Contrast volume: 100 ml; Contrast route: INTRAVENOUS (IV); REPORTING DATA: Count of CT and Cardiac NM exams in prior 12 months: This patient has received 0 known CTs and 0 known cardiac nuclear medicine studies in the 12 months prior to the current study. COMPARISON: CT ANGIO HEAD 06/26/2023 9:51 PM FINDINGS: Right common carotid artery: No stenosis. No dissection or occlusion. Right internal carotid artery: No stenosis of the extracranial segment. No dissection or occlusion. Right external carotid artery: No occlusion or stenosis of the origin. Left common carotid artery: Calcific plaque left carotid bifurcation without hemodynamically significant stenosis . Left internal carotid artery: No stenosis of the extracranial segment. No dissection or occlusion. Left external carotid artery: No occlusion or stenosis of the origin. Right vertebral artery: No stenosis. No dissection or occlusion. Left vertebral artery: No stenosis. No dissection or occlusion. Soft tissues: Normal. No significant soft tissue swelling. Bones/joints: No acute fracture. IMPRESSION: No evidence for occlusion, stenosis or dissection of the cervical vessels. REFERENCES: NASCET CRITERIA. The degree of stenosis in the cervical segment of the internal carotid artery is based on NASCET criteria. Normal is no stenosis. Mild is less than 50% stenosis. Moderate is 50-69% stenosis. Severe is 70% to 99% stenosis. Total occlusion is no detectable patent lumen.
--- NOTE | 2023-06-26 21:31 | CT_ITS ---
PROCEDURE INFORMATION: Exam: CT Head Without Contrast Exam date and time: 06/26/2023 9:48 PM Age: 67 years old Clinical indication: Dizziness; Additional info: Vertigo; Ataxia TECHNIQUE: Imaging protocol: Computed tomography of the head without contrast. Radiation optimization: All CT scans at this facility use at least one of these dose optimization techniques: automated exposure control; mA and/or kV adjustment per patient size (includes targeted exams where dose is matched to clinical indication); or iterative reconstruction. REPORTING DATA: Count of CT and Cardiac NM exams in prior 12 months: This patient has received 0 known CTs and 0 known cardiac nuclear medicine studies in the 12 months prior to the current study. COMPARISON: No relevant prior studies available. FINDINGS: Brain: No evidence for intracranial hemorrhage, mass lesions or acute stroke. Intracranial vascular calcifications. Intrinsically dense intracranial vessels; difficult to evaluate. Cerebral ventricles: No ventriculomegaly. Pituitary gland and sella: Negative Paranasal sinuses: Visualized sinuses are unremarkable. No fluid levels. Mastoid air cells: Visualized mastoid air cells are well aerated. Orbital cavities: Negative. Parotid and submandibular glands: Negative Bones/joints: Unremarkable. No acute fracture. Soft tissues: Unremarkable. Vasculature: Negative. IMPRESSION: 1. No evidence for intracranial hemorrhage, mass lesions or acute stroke. 2. Intracranial vascular calcifications. 3. Intrinsically dense intracranial vessels; difficult to evaluate.
--- NOTE | 2023-06-26 21:32 | HMH.EDGENADL ---
Discharge Plan Disposition Patient Disposition: Home, Self-Care Prescriptions Prescriptions: New meclizine 25 mg tablet 25 mg PO TID PRN (Reason: dizziness) Qty: 20 0RF No Action pantoprazole 20 mg tablet,delayed release (DR/EC) 40 mg .ROUTE BID Rx Instructions: 40 mg twice a day; Trelegy Ellipta 100-62.5-25 mcg blister with device 1 inh inhalation DAILY clopidogrel 75 mg tablet 75 mg PO DAILY Qty: 90 3RF nitroglycerin 0.4 mg tablet, sublingual 0.4 mg sublingual Q5M PRN (Reason: chest pain) Qty: 25 1RF Rx Instructions: do not exceed 3 doses per episode atorvastatin 40 mg tablet 40 mg PO HS Qty: 90 3RF furosemide [Lasix] 40 mg Tablet 40 mg PO DAILY atenolol 100 mg Tablet 100 mg PO DAILY sildenafil 100 mg Tablet 100 mg PO NEEDED PRN (Reason: Erectile Dysfunction) allopurinol 300 mg Tablet 300 mg PO DAILY albuterol sulfate [Ventolin HFA] 90 mcg/actuation Hfa Aerosol Inhaler 2 puff INHALATION QIDP PRN (Reason: Shortness Of Breath) amlodipine-benazepril 10-40 mg Capsule 1 cap PO DAILY aspirin 81 mg Tablet,Delayed Release (Dr/Ec) 81 mg PO DAILY Qty: 30 0RF Referrals Follow up/Referrals: Pamela Jean [Primary Care Provider] - See instructions Activity Restrictions/Add. Instructions Additional Instructions/Restrictions: Your evaluation today is consistent with benign paroxysmal positional vertigo. We discussed trying to do an Azam maneuver for resolution of your symptoms and you declined. CAT scan of your head and your neck did not demonstrate any significant abnormality in the blood vessels or in the brain. Please follow-up with primary care doctor if your symptoms not improving. Clinical Impressions Clinical Impression: Benign paroxysmal positional vertigo Discharge ED Provider: Lissy Giron General Adult HPI General Chief complaint: Dizziness Stated complaint: dizzy,nausea Time Seen by Provider: 06/26/23 21:19 Mode of Arrival: Wheelchair Source of Information: Patient and Spouse Limitations: No Limitations Description of Symptoms (Recalled from ER Triage Doc. by RN): Patient reports nausea and dizziness starting yesterday evening. Patient reports he took a nebulizer treatment and then a viagra shortly after and was concerned that this caused his dizziness, however this morning he continued to have nausea and dizziness. Emesis x 1 and 0830. Patient reports that his dizziness is worse with movement and improves with staying still. Patient reports mild headache. History of Present Illness HPI narrative: Is a 67-year-old with a history of coronary disease on aspirin and Plavix presented today with dizziness and ataxia. States that this began earlier today and it is worsening with movement and position changing. States he has had significant difficulty with walking and falling to the side. Denies any changes in vision. Denies any chest pain shortness of breath or any other symptoms. No history of recent ear infection no history of benign positional vertigo. States he is never had any symptoms like this before. Related Data Home Medications Medication Instructions Recorded Confirmed albuterol sulfate 90 mcg/actuation 2 puff inhalation QIDP PRN 04/04/22 04/25/23 aerosol inhaler (Ventolin HFA) Shortness Of Breath allopurinol 300 mg tablet 300 mg PO DAILY gout 04/04/22 04/25/23 amlodipine 10 mg-benazepril 40 mg 1 cap PO DAILY Hypertension 04/04/22 04/25/23 capsule atenolol 100 mg tablet 100 mg PO DAILY Hypertension 04/04/22 04/25/23 furosemide 40 mg tablet (Lasix) 40 mg PO DAILY Edema 04/04/22 04/25/23 sildenafil 100 mg tablet 100 mg PO NEEDED PRN Erectile 04/04/22 04/25/23 Dysfunction fluticasone fur. 100 mcg-umeclid 1 inh inhalation DAILY 04/11/23 04/25/23 62.5 mcg-vilant 25 mcg inhalat.powder (Trelegy Ellipta) pantoprazole 20 mg tablet,delayed 40 mg .Route BID 04/11/23 04/25/23 release Previous
[2023-06-26 21:39] LABS: Basophils # 0.1 K/mm3 (0-0.2); Basophils % 0.5 % (0.1-2.0); Eosinophils # 0.2 K/mm3 (0.0-0.4); Eosinophils % 1.5 % (0.1-12.0); Hematocrit 52.3 % (42.0-52.0); Hemoglobin 17.8 g/dL (14.1-18.0); Lymphocytes % 20.7 % (10-50); Mean Corpuscular HGB Conc 34.1 g/dL (31.8-35.4); Mean Corpuscular Hemoglobin 33.2 pg (27.0-31.2); Mean Corpuscular Volume 97.3 fl (80-94); Mean Platelet Volume 8.5 fl (7.4-10.4); Monocytes # 1.4 K/mm3 (0.1-1.0); Neutrophils # 9.6 K/mm3 (1.8-7.8); Neutrophils % 67.3 % (37.0-80.0); Platelet Count 211 K/mm3 (142-424); Red Blood Count 5.37 M/mm3 (4.60-6.20); Red Cell Distribution Width 14.9 % (11.5-17.5); White Blood Count 14.3 K/mm3 (4.8-10.8)
[2023-06-26 21:40] LABS: Chloride 101 mmol/L (98-107); Potassium 3.8 mmoL/L (3.5-5.1); Sodium 139 mmol/L (136-145)
[2023-06-26 21:42] LABS: Blood Urea Nitrogen 13 mg/dl (9-20); Creatinine Clearance Estimated 84 mL/min (50-200); Estimated Glomerular Filt Rate 55 ml/min (>60); GFR (African American) 66 ML/MIN (>60)
[2023-06-26 21:43] LABS: Alanine Aminotransferase 34 U/L (12-78); Albumin Level 4.6 g/dl (3.5-5.0); Albumin/Globulin Ratio 1.5 (1.1-1.8); Alkaline Phosphatase 97 U/L (38-126); Anion Gap 12.8 mEq/L (5-15); Aspartate Amino Transferase 36 U/L (17-59); Bilirubin,Total 1.3 mg/dl (0.2-1.3); Carbon Dioxide 29 mmol/L (22.0-30.0); Glucose 89 mg/dl (74-100); Total Protein,Serum 7.6 g/dl (6.3-8.2)
--- NOTE | 2023-06-26 22:00 | ECG_ITS ---
APPROVED REPORT Exam: Resting ECG HR:78 bpm ECG Measurements Heart Rate 78 AXES MA 213 P 65 QRSd 109 QRS 33 QT 403 T 36 QTc 436 Conclusion SINUS RHYTHM WITH FIRST DEGREE AV BLOCK ABNORMAL ECG UNCONFIRMED REPORT Electronically signed by : Octavio Arguello MD 06/27/2023 17:36:51
[2023-06-26 22:49] VITALS: BP 145/74; PULSE 80; RESP 20; TEMP 36.7; O2SAT 94
== END 2023-06-26 22:50 | disposition home or self-care (01) ==
PROVIDERS: Emergency Provider Student in an Organized Health Care Education/Training Program; PCP Nurse Practitioner Family
DX: H81.10 Benign paroxysmal vertigo, unspecified ear (principal); R11.0 Nausea; Z79.02 Long term (current) use of antithrombotics/antiplatelets; I25.110 Atherosclerotic heart disease of native coronary artery with unstable angina pectoris; Z79.82 Long term (current) use of aspirin; I50.9 Heart failure, unspecified; J44.9 Chronic obstructive pulmonary disease, unspecified; M10.9 Gout, unspecified; I11.0 Hypertensive heart disease with heart failure; E78.5 Hyperlipidemia, unspecified; I25.2 Old myocardial infarction
CPT/HCPCS: 70450; 70496; 70498; 80053; 85025; 93005; 96360; 99285; Q9967

== ENCOUNTER 2023-08-02 09:37 | Outpatient (CLI) | payer MEDICARE, OTHER, MEDICAID, SELFPAY ==
[2023-08-02 10:32] LABS: Alanine Aminotransferase 25 U/L (12-78); Aspartate Amino Transferase 23 U/L (17-59); Bilirubin,Indirect 1.1 mg/dL (0.0-0.9); Bilirubin,Total 1.1 mg/dl (0.2-1.3); Bilirubin,Unconjugated 1.1 mg/dL (0.0-1.1)
[2023-08-02 10:33] LABS: Alkaline Phosphatase 101 U/L (38-126); Chol/HDL Ratio 3.7 (1-3.5); Cholesterol 111 mg/dl (140-200); HDL Cholesterol 30 mg/dl (40-60); Total Protein,Serum 6.3 g/dl (6.3-8.2); Triglycerides 135 mg/dl (30-150); VLDL Cholesterol 27 mg/dL (0-40)
[2023-08-02 10:44] LABS: Direct LDL Cholesterol 64.54 mg/dL (100-129)
== END 2023-08-02 23:59 ==
PROVIDERS: PCP Nurse Practitioner Family; Visit Provider Nurse Practitioner
DX: I11.9 Hypertensive heart disease without heart failure (principal); E78.5 Hyperlipidemia, unspecified; I25.10 Atherosclerotic heart disease of native coronary artery without angina pectoris; J44.9 Chronic obstructive pulmonary disease, unspecified; K21.9 Gastro-esophageal reflux disease without esophagitis; R06.00 Dyspnea, unspecified; Z95.5 Presence of coronary angioplasty implant and graft
CPT/HCPCS: 80061; 80076

== ENCOUNTER 2023-12-13 09:33 | Outpatient (CLI) | payer MEDICARE, OTHER, MEDICAID, SELFPAY ==
[2023-12-13 09:59] LABS: Blood Urea Nitrogen 10 mg/dl (9-20); Estimated Glomerular Filt Rate 60 ml/min (>60); GFR (African American) 72 ML/MIN (>60)
--- NOTE | 2023-12-13 10:04 | CT_ITS ---
FINAL REPORT TECHNIQUE: Routine axial images were obtained from the lung apices to below the diaphragm following IV contrast administration. Individualized dose reduction techniques using automated exposure control or adjustment of the mA and/or kV according to the patient size were employed. CLINICAL HISTORY: MULTIPLE LUNG NODULES COMPARISON: 04/04/2022 FINDINGS: There are mildly prominent mediastinal and axillary nodes, less evident than seen on the prior exam. No pleural or pericardial effusion is seen. There are multiple nodules once again identified. There is a peripheral right lower lobe nodule measuring 4 mm in size, best seen on image #33 of series 2, stable. There is a fissural nodule measuring 6 mm in size, best seen on image #43 of series 2, also stable. There is a 4 mm nodule in the right medial lung base seen on image #48 of series 2, that was not well-seen on the previous exam, possibly secondary to adjacent atelectasis. There is a 7 mm nodule in the left lower lobe, best seen on image #52 of series 2, stable. IMPRESSION: Multiple pulmonary nodules are present as described above, which appear stable. Recommend a 1 year follow-up CT of the chest for further evaluation. Reviewed, Interpreted and Dictated by Ravinder Witt MD Transcribed by Niya Bennett Authenticated and [facility]
[2023-12-13] MEDS: IOPAMIDOL-370 (76%);100ML BOTTLE 75 ML IV (10:48)
[2023-12-13] MEDS: SODIUM CHLORIDE 0.9% 10ML SYR (RAD ONLY) 10 ML IV (10:48)
== END 2023-12-13 23:59 | disposition home or self-care (01) ==
LOC: RAD 09:33
PROVIDERS: PCP Nurse Practitioner Family; Visit Provider Nurse Practitioner Family
DX: R91.8 Other nonspecific abnormal finding of lung field (principal)
CPT/HCPCS: 36415; 71260; 82565; 84520; Q9967

== ENCOUNTER 2024-02-07 09:08 | Outpatient (POV) | payer MEDICARE, OTHER, MEDICAID, SELFPAY | END 2024-02-07 23:59 | disposition home or self-care (01) | LOC: SC 09:09 | PROVIDERS: PCP Nurse Practitioner Family; Visit Provider Dermatology | DX: Z00.00 Encounter for general adult medical examination without abnormal findings (principal) ==

== ENCOUNTER 2024-03-01 08:38 | Outpatient (CLI) | payer MEDICARE, OTHER, MEDICAID, SELFPAY ==
[2024-03-01 09:56] LABS: Basophils # 0.1 K/mm3 (0-0.2); Basophils % 0.6 % (0.1-2.0); Eosinophils # 0.5 K/mm3 (0.0-0.4); Eosinophils % 4.3 % (0.1-12.0); Hematocrit 49.6 % (42.0-52.0); Hemoglobin 16.3 g/dL (14.1-18.0); Lymphocytes # 2.1 K/mm3 (0.7-4.5); Lymphocytes % 18.1 % (10-50); Mean Corpuscular HGB Conc 32.8 g/dL (31.8-35.4); Mean Corpuscular Hemoglobin 31.9 pg (27.0-31.2); Mean Corpuscular Volume 97.2 fl (80-94); Mean Platelet Volume 8.1 fl (7.4-10.4); Monocytes # 0.9 K/mm3 (0.1-1.0); Platelet Count 202 K/mm3 (142-424); Red Cell Distribution Width 14.8 % (11.5-17.5); White Blood Count 11.7 K/mm3 (4.8-10.8)
[2024-03-08 01:09] LABS: D001-IgE D pteronyssinus <0.10 kU/L (Class 0); D002-IgE D farinae <0.10 kU/L (Class 0); E001-IgE Cat Dander <0.10 kU/L (Class 0); E005-IgE Dog Dander <0.10 kU/L (Class 0); E072-IgE Mouse Urine <0.10 kU/L (Class 0); G002-IgE Bermuda Grass <0.10 kU/L (Class 0); G006-IgE Timothy Grass <0.10 kU/L (Class 0); I006-IgE Cockroach, German <0.10 kU/L (Class 0); Immunoglobulin E, Total 152 IU/mL (6-495); M001-IgE Penicillium chrysogen <0.10 kU/L (Class 0); M002-IgE Cladosporium herbarum <0.10 kU/L (Class 0); M003-IgE Aspergillus fumigatus <0.10 kU/L (Class 0); M006-IgE Alternaria alternata <0.10 kU/L (Class 0); T001-IgE Maple/Box Elder <0.10 kU/L (Class 0); T003-IgE Common Silver Birch <0.10 kU/L (Class 0); T006-IgE Cedar, Mountain <0.10 kU/L (Class 0); T007-IgE Oak, White <0.10 kU/L (Class 0); T008-IgE Elm, American <0.10 kU/L (Class 0); T010-IgE Walnut <0.10 kU/L (Class 0); T011-IgE Maple Leaf Sycamore <0.10 kU/L (Class 0); T014-IgE Cottonwood <0.10 kU/L (Class 0); T015-IgE Ash, White <0.10 kU/L (Class 0); T022-IgE Pecan, Hickory <0.10 kU/L (Class 0); T070-IgE White Mulberry <0.10 kU/L (Class 0); W001-IgE Ragweed, Short <0.10 kU/L (Class 0); W011-IgE Thistle, Russian <0.10 kU/L (Class 0); W014-IgE Pigweed, Common <0.10 kU/L (Class 0); W018-IgE Sheep Sorrel <0.10 kU/L (Class 0)
== END 2024-03-01 23:59 | disposition home or self-care (01) ==
LOC: LAB 08:39
PROVIDERS: PCP Nurse Practitioner Family; Visit Provider Internal Medicine Pulmonary Disease
DX: J30.9 Allergic rhinitis, unspecified (principal); Z87.891 Personal history of nicotine dependence
CPT/HCPCS: 36415; 82785; 85025; 86003

== ENCOUNTER 2024-03-21 13:16 | Outpatient (CLI) | payer MEDICARE, OTHER, MEDICAID, SELFPAY ==
--- NOTE | 2024-03-21 13:19 | CT_ITS ---
FINAL REPORT TECHNIQUE: Axial imaging of the sinuses was obtained without contrast. This study was performed with techniques to keep radiation doses as low as reasonably achievable, (ALARA). Individualized dose reduction techniques using automated exposure control or adjustment of mA and/or kV according to the patient's size were employed. CLINICAL HISTORY: CHRONIC SINUSITIS COMPARISON: None FINDINGS: CT SINUSES: There is mild mucoperiosteal thickening in the inferior left maxillary sinus without an air-fluid level seen. The other paranasal sinuses are well aerated. There is no fracture. There are no air-fluid levels. The ostiomeatal units are patent bilaterally. No significant bony abnormality is identified. IMPRESSION: Mild mucoperiosteal thickening of the inferior left maxillary sinus, consistent with mild chronic changes of sinusitis. No air-fluid levels are present to suggest acute sinusitis. Reviewed, Interpreted and Dictated by Ravinder Witt MD Transcribed by Niya Bennett Authenticated and [facility]
== END 2024-03-21 23:59 | disposition home or self-care (01) ==
LOC: RAD 13:17
PROVIDERS: PCP Nurse Practitioner Family; Visit Provider Nurse Practitioner Family
DX: J32.9 Chronic sinusitis, unspecified (principal); Z87.891 Personal history of nicotine dependence
CPT/HCPCS: 70486

== ENCOUNTER 2024-04-03 09:23 | Outpatient (CLI) | payer MEDICARE, OTHER, MEDICAID, SELFPAY ==
[2024-04-03 10:30] VITALS: PULSE 56; PULSE 57
[2024-04-03] MEDS: ALBUTEROL 0.083% 2.5 MG/3 ML NEB IH (10:36)
== END 2024-04-03 23:59 | disposition home or self-care (01) ==
LOC: RT 09:24
PROVIDERS: PCP Nurse Practitioner Family; Visit Provider Internal Medicine Pulmonary Disease
DX: R06.09 Other forms of dyspnea (principal)
CPT/HCPCS: 94060; 94618; 94640; 94726; 94729; J7613

== ENCOUNTER 2024-05-01 08:45 | Outpatient (POV) | payer MEDICARE, OTHER, MEDICAID, SELFPAY | END 2024-05-01 23:59 | disposition home or self-care (01) | LOC: SC 05-02 06:24 | PROVIDERS: Visit Provider Dermatology | DX: Z00.00 Encounter for general adult medical examination without abnormal findings (principal) ==

== ENCOUNTER 2024-12-13 07:26 | Outpatient (CLI) | payer MEDICARE, OTHER, SELFPAY ==
--- NOTE | 2024-12-13 07:30 | CT_ITS ---
FINAL REPORT CLINICAL HISTORY: SCREENING former smoker, quit 3 yrs ago 1.5 ppd x 47 yrs DLP 96.38 COMPARISON: 12/13/2023 FINDINGS: CT CHEST LOW DOSE SCREENING HISTORY: Screening exam for lung cancer. DOSE: CTDI vol: 2.90 mGy, DLP: 96.38 mGy*cm TECHNIQUE: Axial CT without IV contrast administration using low dose protocol. This study was performed with techniques to keep radiation doses as low as reasonably achievable, (ALARA). Individualized dose reduction techniques using automated exposure control or adjustment of mA and/or kV according to the patient's size were employed. No acute lung disease is present. There are multiple subcentimeter pulmonary nodules, more numerous in the right lung. Largest nodule in the left lower lobe is well-seen on image 47 of series 3 measuring 8 mm, unchanged from prior. Mild right middle lobe scarring is identified. No pleural or pericardial effusion is seen. No adenopathy or mass lesion is present. IMPRESSION: Stable numerous pulmonary nodules, presumably inflammatory. LUNG RADS CATEGORY 2 RECOMMENDATION: 12 month LDCT follow up Reviewed, Interpreted and Dictated by Cristina Ny MD Transcribed by Brandee Nash Authenticated and [facility]
== END 2024-12-13 23:59 | disposition home or self-care (01) ==
LOC: RAD 07:27
PROVIDERS: PCP Nurse Practitioner Family; Visit Provider Nurse Practitioner Family
DX: R91.8 Other nonspecific abnormal finding of lung field (principal); Z13.9 Encounter for screening, unspecified; Z87.891 Personal history of nicotine dependence
CPT/HCPCS: 71271

== ENCOUNTER 2025-02-12 07:43 | Day surgery (SDC) | payer MEDICARE, OTHER, SELFPAY ==
[2025-02-12] VITALS (12 sets, daily range): BP systolic 127–150; BP diastolic 67–91; PULSE 56–70; RESP 18–20; O2SAT 90–96; BMI 34.7
--- NOTE | 2025-02-12 07:07 | IR_ITS ---
APPROVED REPORT Patient Location: Outpatient PROCEDURES Left heart catheterization Left ventriculogram Selective coronary angiogram INDICATION Angina pectoris, Known coronary artery disease Informed consent was obtained prior to the procedure. COMPLICATIONS NONE Estimated Blood Loss: LESS THAN 10 ML TECHNIQUE One percent lidocaine used to anesthetize the right anterior aspect of the wrist. The right radial artery was accessed via the Seldinger technique. A 6 Maori sheath was placed in the right radial artery. 2.5 mg of Verapamil, 800 mcg of nitroglycerin, 1mg Lidocaine and 5000 U Heparin were given through the arterial sheath. The JL3 catheter was also used to perform left heart catheterization, left ventriculogram and selective coronary angiogram. At the end of the procedure the sheath was removed good hemostasis was achieved using Traclet band, patient was transferred to the postop holding area in stable condition. ANGIOGRAPHIC RESULTS The left main artery Normal The left anterior descending artery Has proximal 10% luminal regularities with mid vessel diffuse 40 and 50% stenoses. The distal portion of the mid LAD is large caliber as is the distal LAD as it wraps the apex. A large first diagonal artery has diffuse 30% stenosis The circumflex artery Nondominant and has proximal 20% with mid vessel 30% concentric stenosis The right coronary artery Large and dominant with stents in the proximal to mid segment which have concentric 30% in-stent restenosis. Distally there is a 40 to 50% concentric stenosis The LEWIS ventriculogram reveals Preserved 60% The left ventricular end-diastolic pressure Elevated at 25 to 30 mmHg IMPRESSION Moderate disease in the mid LAD which is unchanged from angiography performed March 2022. Moderate distal dominant RCA disease as described above Preserved ejection fraction Moderate to severely elevated LVEDP PLAN 1. Recommend medical management for coronary disease at this time. The mid LAD lesions are unchanged and actually may be slightly improved from angiography in 2021. It is unlikely the LAD is producing symptoms 2. It is also unlikely the distal dominant right coronary artery stenosis is producing symptoms and patient symptoms more likely stemming from elevated LVEDP 3. Recommend cardiac rehabilitation 4. Will switch low-dose Lasix to Bumex 1 mg daily combined with spironolactone 100 mg daily 5. LDL less than 55 to be achieved with high intensity statin 6. Risk factor modification 7. If patient fails to respond to higher dose diuretics and may be reasonable to perform FFR on the mid LAD and distal dominant right stenosis however it is unlikely based on angiographic criteria that this is producing symptoms Electronically signed by : James Vyas MD 02/12/2025 11:31:13
[2025-02-12 08:12] LABS: Hematocrit 50.4 % (42.0-52.0); Hemoglobin 16.9 g/dL (14.1-18.0); Immature Granulocytes % 0.3 %; Mean Corpuscular HGB Conc 33.5 g/dL (31.8-35.4); Mean Corpuscular Hemoglobin 31.1 pg (27.0-31.2); Mean Corpuscular Volume 92.8 fl (80-94); Nucleated Red Blood Cells % 0 %; Platelet Count 222 K/mm3 (142-424); Red Blood Count 5.43 M/mm3 (4.60-6.20); Red Cell Distribution Width-SD 48.6 fL; White Blood Count 12.9 K/mm3 (4.8-10.8)
[2025-02-12 08:18] LABS: Chloride 101 mmol/L (98-107); Potassium 4.0 mmoL/L (3.5-5.1); Sodium 137 mmol/L (136-145)
[2025-02-12 08:21] LABS: Anion Gap 13.0 mEq/L (5-15); Blood Urea Nitrogen 11 mg/dl (9-20); Calcium 9.2 mg/dl (8.4-10.2); Carbon Dioxide 27 mmol/L (22.0-30.0); Creatinine Clearance Estimated 111 mL/min (50-200); Creatinine,Serum 1.00 mg/dl (0.66-1.25); Estimated Glomerular Filt Rate 74 ml/min (>60); GFR (African American) 89 ML/MIN (>60); Glucose 144 mg/dl (74-100)
[2025-02-12] MEDS: 0.9 % SODIUM CHLORIDE 500 ML 25 ML IV (09:04)
[2025-02-12] MEDS: HEPARIN 1,000 UNITS/ML 10ML VIAL (CATH LAB) 5000 UNIT IV (09:05)
[2025-02-12] MEDS: LIDOCAINE 1% 10ML MDV 10 ML IJ (09:05)
[2025-02-12] MEDS: HEPARIN 1,000 UNITS/500ML NS (CATH LAB) 3000 UNIT IV (09:05)
[2025-02-12] MEDS: NITROGLYCERIN 800MCG/8ML SYR (CATH LAB) 800 MCG IA (09:05)
[2025-02-12] MEDS: VERAPAMIL 2.5MG/ML 2ML VIAL 2.5 MG IV (09:05)
[2025-02-12] MEDS: MIDAZOLAM HCL 1MG/ML 5ML VIAL 1 MG IV (09:37)
[2025-02-12] MEDS: FENTANYL 100MCG/2ML VIAL 50 MCG IV (09:37)
== END 2025-02-12 12:06 | disposition home or self-care (01) ==
PROVIDERS: PCP Nurse Practitioner Family; Visit Provider Internal Medicine
PROC: 4A023N7 Measurement of Cardiac Sampling and Pressure, Left Heart, Percutaneous Approach (ICD-10-PCS; CPT 93452; principal; 2025-02-12 07:30)
DX: I25.118 Atherosclerotic heart disease of native coronary artery with other forms of angina pectoris (principal); I10 Essential (primary) hypertension; Z95.5 Presence of coronary angioplasty implant and graft; I25.2 Old myocardial infarction; Z87.891 Personal history of nicotine dependence; Z82.3 Family history of stroke; Z79.51 Long term (current) use of inhaled steroids; Z79.82 Long term (current) use of aspirin; Z79.899 Other long term (current) drug therapy; Z88.5 Allergy status to narcotic agent; Z88.8 Allergy status to other drugs, medicaments and biological substances; Z82.49 Family history of ischemic heart disease and other diseases of the circulatory system; J44.9 Chronic obstructive pulmonary disease, unspecified; K21.9 Gastro-esophageal reflux disease without esophagitis; E78.2 Mixed hyperlipidemia
CPT/HCPCS: 80048; 85025; 93458; 99152; C1725; C1760; C1769; J1200; J1644; J2003; J3010; J7040

== ENCOUNTER 2025-02-19 12:06 | Outpatient (CLI) | payer MEDICARE, OTHER, SELFPAY ==
--- OUTSIDE RECORDS SUMMARY | 2023-04-06 08:35 | XMS_ITS | Encounter Summary ---
[facility] Address [address] [place] [address] Care Team Providers Care Maintenance Shop Manager Name Role Phone Provider, No Known Primary Care Provider Unavail able Encounter Details Date Type Department Care Team (Late st Contact Info) Description 04/06/2023 8:35 AM EDT Hospital Encounter [facility] [place] [address] Social History Tobacco Use Types Packs/Day Years Used Date Smoking Tobacco: Former Cigarettes 1.5 46 0 03/25/1976 - 03/25/2022 Passive Smoke Exposure: Past Smokeless Tobacco: Never Alcohol Use Standard Drinks/Week Comments Not Currently 0 (1 standard drink = 0.6 oz pur e alcohol) Abuse Screen Answer Date Recorded Unsafe at Home or Work/School Not on file Feels Threatened by Someone? Not on file 06/2023 Does Anyone Keep You from Co ntacting Others or Doint Things Outside the Home? Not on file 05/05/2023 Physical Sign of Abuse Present Not on file 1 Housing Stability Answer Date Recorded Current Living Arrangements Not on file 04/24 Potentially Unsafe Housing Conditions Not on enmanuel e 05/05/2023 Family and Community Support Answer Braulio e Recorded Help with Day-to-Day Activities Not on file 05/05/2023 Lonely or Isolated Not on file 05/05/2023 Employment Answer Date Recorded Do you want help finding or keeping work or a aly b? Not on file 05/05/2023 Disabilities Answer Date Recorded Concentrating, Remembering, or Making Decisions Difficulty Not on file 05/05/2023 Doing Errands Independently Difficulty Not on fi le 05/05/2023 Education Answer Date Recorded Help with school or training? Not on file Preferred Language Not on file 05/05/2023 Sex and Gender Information Value Date Recorded Sex Assigned at Not on file Legal Sex Male 8:53 AM EST Gender Identity Not on file Sexual Orientation Not on file documented as of this encounter Plan of Treatment Not on file documented as of this encounter Procedures Procedure Name Priority Date/Time Associated Diagnosis Comments XR CHEST PA AND LATERAL Routine 04/06/2023 8:40 AM EDT Mucopurulent chronic bronchitis Personal history of smoking (quit 2021) documented in this encounter Results * XR Chest PA & Lateral (04/06/2023 8:40 AM EDT) Anatomical Region Laterality Modality Body, Chest N/A Radiographic Magalie ging Narrative 04/06/2023 9:39 AM EDT Shayan Samuel [phone] 04/06/2023 Chest X-Ray PA & Lateral Indication: COPD Findings: Lungs are clear. No effusions. Heart and mediastinum unremarkable. No pneumothorax. Interpretation: No acute cardiopulmonary findings Christine Hargrove DO Please note that portions of this note may have been completed with a voice recognition program. Efforts were made to edit the dictations, but occasionally words are mistranscribed. us Alberto Hargrove DO IMG DIAGNOSTIC IMAG ING ORDERABLES Final Result documented in this encounter Visit Diagnoses Not on filedocumented in this encounter Care Teams Maintenance Shop Manager Relationship Specialty Start Date End Date Provider, No Known [facility] [place] [address] PCP - General 07/28/20 05/31/23 documented as of this encounter
--- OUTSIDE RECORDS SUMMARY | 2025-02-19 12:09 | XMS_ITS | Clinical Summary ---
Author Organization [facility] Address [address] [place] [address] Care Team Providers Care Airplane Tester Name Role Phone Pamela Jean APRN Primary Care Provider [phone] Allergies Active Allergy Reactions Criticality Noted Date Comments Naproxen Rash Low 04/06/2023 Oxycodone Nausea And Vomiting Low 06/09/2022 Oxycodone-Acetaminophen Anxiety Low 04/06/2023 Medications sildenafil (VIAGRA) 100 MG tablet TAKE ONE TABLET BY MOUTH EVERY DAY approximately 1 hour prior TO sexual activity NEEDED 3 Active furosemide (LASIX) 40 MG tablet Take 1 tablet by mouth Every Morning. 3 Active clopidogrel (PLAVIX) 75 MG tablet Take 1 tablet by mouth Daily. 3 Active atenolol (TENORMIN) 100 MG tablet Take 1 tablet by mouth Daily. 3 Active amLODIPine-armida zepril (LOTREL) 10-40 MG per capsule Take 1 capsule by mouth Daily. 3 Active allopurinol (ZYLOPRIM) 300 MG tablet Take 1 tablet by mouth Daily. 3 Active albuterol sulfate HFA 108 (90 Base) MCG/ACT inhaler Inhale 2 puffs every 4 hours by inhalation route as needed. 3 Active atorvastatin (LIPITOR) 40 MG tablet Take 1 tablet by mouth Every Night. Active aspirin 81 MG EC tablet Take 1 tablet by mouth Daily. Active Fluticasone-Ume clidin-Vilant (Trelegy Ellipta) 200-62.5-25 MCG/ACT aerosol powderIndicatio ns:Mucopurulent chronic bronchitis Inhale 1 puff Daily. 60 each 11 3 Active nitroglycerin (NITROSTAT) 0.4 MG SL tablet DISSOLVE 1 TABLET UNDER THE TONGUE EVERY 5 MINUTES NEEDED FOR CHEST PAIN. DO NOT EXCEED A TOTAL OF 3 DOSES IN 15 MINUTES. IF NO RELIEF AFTER 3 DOSES CALL 911/GO TO ER Active albuterol (PROVENTIL) (2.5 MG/3ML) 0.083% nebulizer solutionIndicat ions:Mucopurule nt chronic bronchitis Take 2.5 mg by nebulization 4 (Four) Times a Day As Needed for Wheezing. 360 mL 11 3 Active pantoprazole (PROTONIX) 40 MG EC tabletIndicatio ns:GERD without esophagitis Take 1 tablet by mouth Daily. 90 tablet 2 4 Active Active Problems Problem Noted Date Diagnosed Date GERD without esophagitis 06/15/2023 Personal history of smoking (quit 2021) 04/06/20 23 Mucopurulent chronic bronchitis 04/06/2023 HTN (hypertension) 04/06/2023 HLD (hyperlipidemia) 04/06/2023 CAD s/p Stents (2021) 04/06/2023 Encounters Date Type Department Care Team Description 12/19/2024 Telephone [facility] [address] [place] [phone] Alberto Hargrove DO from Last 3 Months Immunizations Immunization Administration Dates Next Due Pneumococcal Polysaccharide (PPSV23) 08/03/2019 Family History Medical History Relation Name Comments Cancer Brother Diabetes Brother Diabetes Child ALS Father Diabetes Mother Heart disease Mother Relation Name Status Comments Brother Child Alive Father Mother Social History Tobacco Use Types Packs/Day Years Used Date Smoking Tobacco: Former Cigarettes 1.5 46 0 03/25/1976 - 03/25/2022 Passive Smoke Exposure: Past Smokeless Tobacco: Never Tobacco Cessation:Counseling Given: Not Answered Alcohol Use Standard Drinks/Week Comments Not Currently [...] on file Sexual Orientation Not on file Last Filed Vital Signs Vital Sign Reading Time Taken Comments Blood Pressure 138/72 06/15/2023 8:24 AM EST Pulse 59 06/15/2023 8:24 AM EST Temperature 37.1 C (98.7 F) 06/15/2023 8:24 AM EST Respiratory Rate - - Oxygen Saturation 95% 06/15/2023 8:2 4 AM EST Room air at rest Inhaled Oxygen Concentration - - Weight 110 kg (243 lb 4.8 oz) 06/15/2023 8:24 AM EST Height 182.9 cm (6') 06/15/2023 8:24 AM EST Body Mass Index 33 06/15/2023 8:24 AM EST Plan of Treatment Health Maintenance Due Date Last Done Comments LIPID PANEL 1953 TDAP/TD VACCINES (1 - Tdap) 1972 COLOGUARD 1998 COLON CANCER SCREENING 5 YEA R SIGMOIDOSCOPY 1998 COLONOSCOPY [address] CAN[address]ER SCREENING 1998 CT COLONOGRAPHY 1998 FECAL OCCULT BLOOD TEST 1998 FIT Testing (1 year) 1998 ZOSTER VACCINE (1 of 2) 10/01/2003 Pneumococcal Vaccine 50+ (2 of 2 - PCV) 08/03/2020 08/03/2019 ANNUAL WELLNESS VISIT 04/06/2023 HEPATITIS C SCREENING 04/06/2023 COVID-19 Vaccine (4 - 2023-2 5 season) 2024 05/21/2021, 10/23/2020, 09/25/2020 INFLUENZA VACCINE 04/24/2025 AAA SCREEN ONCE Completed 09/10/2022 LUNG CANCER SCREENING Discontinued 06/13/2023 Procedures Procedure Name Priority Date/Time Associated Diagnosis Comments CT CHEST LOW DOSE WO CANCER SCREENING Routine 06/13/2023 10:06 AM EST Personal history of smoking (quit 2021) from Last 3 Months or Most Recently Relevant to Health Maintenance Results * CT Chest Low Dose Cancer Screening WO (06/13/2023 10:06 AM EST) Anatomical Region Laterality Modality Chest Computed Tomogra phy 06/14/2023 9:06 AM EST Impressions 06/14/2023 2:30 PM EST Impression: Multiple bilateral solid pulmonary nodules measuring up to 7 mm. Recommendation: 6 month follow up with LDCT. Lung Rads Assessment: Lung-RADS L3 - Probably benign, 1-2% chance of malignancy. Electronically Signed: Rubén Gannon MD 06/14/2023 2:30 PM EST Workstation ID: [id number] Narrative 06/14/2023 2:[address] CHEST LOW DOSE CANCER SCREENING WO Date of Exam: 06/13/2023 10:01 AM EST Indication: Lung cancer screening, >= 20 pk-yr smoking history (Age >= 50y). Comparison: None available. Technique: Low dose CT imaging of the chest was performed without intravenous contrast enhancement. Automated exposure control and iterative reconstruction methods were used. Findings: Multiple bilateral solid pulmonary nodules. For reference: - Left lower lobe nodule measuring 7 mm (image 179). - Right upper lobe nodule measuring 6 mm (image 109). - Multiple additional smaller nodules (images 116, 128, 172, 212). Mild centrilobular emphysema. Scattered calcified granulomas. No focal consolidation. No pleural effusion. No pneumothorax. Coronary artery calcifications. Normal caliber thoracic aorta. No suspicious lymphadenopathy. Visualized portions of the upper abdomen demonstrate an exophytic left renal lesion that may be a cyst but is unable to be fully characterized on this low-dose CT. Multilevel degenerative changes of the spine. No acute or suspicious soft tissue or osseous lesion. Procedure Note Rubén Gannon MD - 06/14/2023 CT CHEST LOW DOSE CANCER SCREENING WO Date of Exam: 06/13/2023 10:01 AM EST Indication: Lung cancer screening, >= 20 pk-yr smoking history (Age >=50y). Comparison: None available. Technique: Low dose CT imaging of the chest was performed withoutintravenous contrast enhancement. Automated exposure control anditerative reconstruction methods were used. Findings: Multiple bilateral solid pulmonary nodules. For reference: - Left lower lobe nodule measuring 7 mm (image 179). - Right upper lobe nodule measuring 6 mm (image 109). - Multiple additional smaller nodules (images 116, 128, 172, 212). Mild centrilobular emphysema. Scattered calcified granulomas. No focalconsolidation. No pleural effusion. No pneumothorax. Coronary artery calcifications. Normal caliber thoracic aorta. Nosuspicious lymphadenopathy. Visualized portions of the upper abdomendemonstrate an exophytic left renal lesion that may be a cyst but isunable to be fully characterized on this low-dose CT. Multilevel degenerative changes of the spine. No acute or suspicioussoft tissue or osseous lesion. IMPRESSION: Impression: Multiple bilateral solid pulmonary nodules measuring up to 7 mm. Recommendation: 6 month follow up with LDCT. Lung Rads Assessment: Lung-RADS L3 - Probably benign, 1-2% chance of malignancy. Electronically Signed: Rubén Gannon MD 06/14/2023 2:30 PM EST Workstation ID: [id number] Alberto Hargrove DO IMG CT ORDERABLES F inal Result from Last 3 Months or Most Recently Relevant to Health Maintenance Insurance MEDICARE A & [employer] Care Teams Airplane Tester Relationship Specialty Start Date End Date Pamela Jean APRN [address] [place] [address] PCP - General Nurse Practitioner 06/01/23
[2025-02-19 14:13] LABS: Chloride 98 mmol/L (98-107)
[2025-02-19 14:14] LABS: Potassium 4.8 mmoL/L (3.5-5.1); Sodium 134 mmol/L (136-145)
[2025-02-19 14:17] LABS: Anion Gap 14.8 mEq/L (5-15); Blood Urea Nitrogen 18 mg/dl (9-20); Calcium 9.7 mg/dl (8.4-10.2); Carbon Dioxide 26 mmol/L (22.0-30.0); Creatinine,Serum 1.10 mg/dl (0.66-1.25); Estimated Glomerular Filt Rate 66 ml/min (>60); GFR (African American) 80 ML/MIN (>60); Glucose 119 mg/dl (74-100); Magnesium 1.7 mg/dl (1.6-2.3)
== END 2025-02-19 23:59 | disposition home or self-care (01) ==
LOC: LAB 12:07
PROVIDERS: PCP Nurse Practitioner Family; Visit Provider Physician Assistant
DX: I10 Essential (primary) hypertension (principal)
CPT/HCPCS: 36415; 80048; 83735